=== PATIENT | female | born 1960 | race Caucasian/White ===

== ENCOUNTER → 2019-03-28 | Outpatient (CLI) | payer BC ==
[2019-03-28 16:54] LABS: HCT 40.9 % (34.0-46.0); HGB 13.4 gm/dL (11.4-16.0); MCH 28.5 pg (25.0-35.0); MCHC 32.8 g/dL (31.0-37.0); MCV 86.8 fL (80.0-100.0); Mean Platelet Volume 7.9; Platelet Count 215 k/uL (150-450); RBC 4.71 m/uL (3.80-5.40); RDW 15.4 % (11.5-15.5); WBC 8.5 k/uL (3.8-10.6)
[2019-03-28 23:13] LABS: Vitamin D 25 Hydroxy 20.6 ng/mL (30.0-100.0)
[2019-03-28 23:27] LABS: Estradiol <11.8 pg/mL; Progesterone <0.2 ng/mL
[2019-03-28 23:45] LABS: African American GFR (CKD) 94.2 (60.0-200.0); Albumin 4.9 g/dL (3.80-4.90); Albumin/Globulin Ratio 2.45 (1.60-3.17); Anion Gap 11.8 mmol/L (4.00-12.00); BUN/Creat Ratio 23.75 Ratio (12.00-20.00); Calcium 9.7 mg/dL (8.7-10.3); Carbon Dioxide 21.2 mmol/L (21.6-31.8); Potassium 4.5 mmol/L (3.5-5.5); Total Bilirubin 0.7 mg/dL (0.3-1.2); Total Protein 6.9 g/dL (6.2-8.2)
== END | disposition home or self-care (01) ==
LOC: LABWHC1 15:43
PROVIDERS: ATTEND Obstetrics & Gynecology
DX: N95.1 Menopausal and female climacteric states (principal); L65.9 Nonscarring hair loss, unspecified; N89.8 Other specified noninflammatory disorders of vagina; G47.00 Insomnia, unspecified; R37 Sexual dysfunction, unspecified; R45.4 Irritability and anger; R53.83 Other fatigue
CPT/HCPCS: 36415; 80053; 82306; 82607; 82670; 83001; 84144; 84403; 84443; 84481; 85027

== ENCOUNTER 2019-11-30 22:45 | Emergency (ER) | payer BC ==
[2019-11-30] MEDS ORDERED: SODIUM CHLORIDE 0.9% 1,000 ML IV STA (23:08)
[2019-11-30] MEDS ORDERED: ACETAMINOPHEN TAB 500 MG TAB PO STA (23:08)
[2019-11-30 23:42] LABS: Basophils % (A) 0 %; Eosinophils # (A) 0.1 k/uL (0-0.7); Eosinophils % (A) 0 %; HCT 41.2 % (34.0-46.0); HGB 13.6 gm/dL (11.4-16.0); Lymphocytes % (A) 8 %; MCH 27.6 pg (25.0-35.0); MCV 83.6 fL (80.0-100.0); Mean Platelet Volume 8.3; Monocytes # (A) 0.5 k/uL (0-1.0); Monocytes % (A) 4 %; Neutrophils % (A) 87 %; Platelet Count 175 k/uL (150-450); RBC 4.93 m/uL (3.80-5.40); WBC 12.7 k/uL (3.8-10.6)
[2019-11-30 23:49] LABS: Appearance,Urine Cloudy (Clear); Bilirubin,Urine Negative (Negative); Blood,Urine Small (Negative); Color,Urine Yellow; Glucose,Urine (UA) Negative (Negative); Ketones,Urine 3+ (Negative); Leukocyte Esterase,Urine Large (Negative); Mucus,Urine Few /hpf; Nitrite,Urine Negative (Negative); PH, Urine 5.5 (5.0-8.0); Protein,Urine Trace (Negative); RBC,Urine 4 /hpf (0-5); Specific Gravity,Urine 1.019 (1.001-1.035); Squamous Epithelial Cell,Urine 2 /hpf (0-4); Urobilinogen,Urine <2.0 mg/dL (<2.0); WBC,Urine >182 /hpf (0-5)
[2019-11-30] MEDS ORDERED: cefTRIAXone IN SWFI 1,000 MG/10 ML SYRINGE IVP STA (23:50)
[2019-11-30] MEDS ORDERED: KETOROLAC 30 MG/ML 1 ML VIAL IVP STA (23:50)
[2019-11-30 23:51] LABS: Albumin 4.5 g/dL (3.5-5.0); Calcium 9.4 mg/dL (8.4-10.2); Potassium 3.9 mmol/L (3.5-5.1); Total Protein 7.4 g/dL (6.3-8.2)
[2019-11-30] MEDS ORDERED: SODIUM CHLORIDE 0.9% 500 ML 500 ML IV ONE (23:51)
--- NOTE | 2019-12-01 00:02 | XR ---
EXAMINATION TYPE: XR chest 2V DATE OF EXAM: 11/30/2019 COMPARISON: 03/22/2013 HISTORY: Chest pain TECHNIQUE: 2 views FINDINGS: Heart and mediastinum are normal. Lungs are clear. Diaphragm is normal. Bony thorax appears normal. IMPRESSION: Normal chest. No change.
--- NOTE | 2019-12-01 00:09 | ED ---
General Adult HPI - General Chief complaint: Fever Stated complaint: Fever, nausea Time Seen by Provider: 11/30/19 23:08 Source: patient, RN notes reviewed, old records reviewed Mode of arrival: ambulatory Limitations: no limitations - History of Present Illness Initial comments: 59-year-old female with no significant past medical history presenting for fever, suprapubic pain and vomiting. Patient had several episodes of vomiting throughout the day today. She first noticed a fever yesterday evening. She denies cough or URI symptoms. She is additionally complaining of a headache and does have history of migraine headaches. She states her lower abdominal suprapubic pain is bilateral. She's had normal bowel movements. No rash. - Related Data Home Medications Medication Instructions Recorded Confirmed Ergocalciferol [Vitamin D2 1 tab PO DAILY 11/30/19 11/30/19 (DRISDOL)] Previous Rx's Medication Instructions Recorded Cephalexin [Keflex] 500 mg PO Q8HR 10 Days #30 cap 12/01/19 Allergies Allergy/AdvReac Type Severity Reaction Status Date / Time Sulfa (Sulfonamide Allergy Rash/Hives Verified 11/30/19 22:52 Antibiotics) Review of Systems ROS Statement: Those systems with pertinent positive or pertinent negative responses have been documented in the HPI. ROS Other: All systems not noted in ROS Statement are negative. Past Medical History Additional Past Medical History / Comment(s): migraines History of Any Multi-Drug Resistant Organisms: None Reported Past Surgical History: Appendectomy, Breast Surgery, Orthopedic Surgery Additional Past Surgical History / Comment(s): sinus surgery Past Psychological History: No Psychological Hx Reported Smoking Status: Never smoker Past Alcohol Use History: None Reported Past Drug Use History: None Reported General Exam Limitations: no limitations General appearance: alert, in no apparent distress Head exam: Present: atraumatic, normocephalic Eye exam: Present: normal appearance, PERRL, EOMI ENT exam: Present: normal exam, normal oropharynx Neck exam: Present: normal inspection. Absent: tenderness, meningismus Respiratory exam: Present: normal lung sounds bilaterally. Absent: respiratory distress, wheezes, rhonchi Cardiovascular Exam: Present: normal rhythm, tachycardia GI/Abdominal exam: Present: soft. Absent: distended, tenderness, guarding, rebound Extremities exam: Present: normal inspection, normal capillary refill. Absent: pedal edema Back exam: Present: normal inspection. Absent: CVA tenderness (R), CVA tenderness (L) Neurological exam: Present: alert, oriented X3, CN II-XII intact, normal gait. Absent: motor sensory deficit Psychiatric exam: Present: normal affect, normal mood Course Vital Signs 11/30/19 12/01/19 22:49 00:36 Temperature 101.7 F H 100.6 F H Pulse Rate 111 H 92 Respiratory 20 18 Rate Blood Pressure 147/93 134/77 O2 Sat by Pulse 97 96 Oximetry Medical Decision Making - Medical Decision Making 59-year-old female presenting with fever, vomiting, suprapubic pain. Patient afebrile mildly tachycardic with a stable blood pressure. Overall well- appearing. She has a history concerning for pyelonephritis. Urinalysis showing greater than 182 white cells, and 3+ ketones. She has mild leukocytosis, stable hemoglobin, normal electrolytes, normal kidney function, lactic acid is n ormal at 1.1. She's given IV hydration, IV antibiotics awaiting culture results. She is also given antipyretics and on reevaluation she is feeling much better. We did discuss possibility of admission versus home with close return parameters. Patient will return with any worsening or changing symptoms. She is prescribed Keflex 500 mg 3 times daily for 10 days. Urine culture pending. - Lab Data Result diagrams: 11/30/19 23:29 11/30/19 23:29 Lab Results 11/30/19 11/30/19 11/30/19 Range/Units 23:29 23:29 23:29 WBC 12.7 H (3.8-10.6) k/uL RBC 4.93 (3.80-5.40) m/uL Hgb 13.6 (11.4-16.0) gm/dL Hct 41.2 (34.0-46.0) % MCV 83.6 (80.0-100.0) fL MCH 27.6 (25.0-35.0) pg MCHC 33.0 (31.0-37.0) g/dL RDW 15.0 (11.5-15.5) % Plt Count 175 (150-450) k/uL Neutrophils % 87 % Lymphocytes % 8 % Monocytes % 4 % Eosinophils % 0 % Basophils % 0 % Neutrophils # 11.0 H (1.3-7.7) k/uL Lymphocytes # 1.0 (1.0-4.8) k/uL Monocytes # 0.5 (0-1.0) k/uL Eosinophils # 0.1 (0-0.7) k/uL Basophils # 0.0 (0-0.2) k/uL Sodium 136 L (137-145) mmol/L Potassium 3.9 (3.5-5.1) mmol/L Chloride 102 (98-107) mmol/L Carbon Dioxide 25 (22-30) mmol/L Anion Gap 9 mmol/L BUN 13 (7-17) mg/dL Creatinine 0.89 (0.52-1.04) mg/dL Est GFR (CKD-EPI)AfAm 82 (>60 ml/min/1.73 sqM) Est GFR (CKD-EPI)NonAf 71 (>60 ml/min/1.73 sqM) Glucose 116 H (74-99) mg/dL Plasma Lactic Acid Roberto (0.7-2.0) mmol/L Calcium 9.4 (8.4-10.2) mg/dL Total Bilirubin 1.0 (0.2-1.3) mg/dL AST 21 (14-36) U/L ALT 20 (4-34) U/L Alkaline Phosphatase 78 (38-126) U/L Total Protein 7.4 (6.3-8.2) g/dL Albumin 4.5 (3.5-5.0) g/dL Urine Color Yellow Urine Appearance Cloudy H (Clear) Urine pH 5.5 (5.0-8.0) Ur Specific [place] 1.019 (1.001-1.035) Urine Protein Trace H (Negative) Urine Glucose (UA) Negative (Negative) Urine Ketones 3+ H (Negative) Urine Blood Small H (Negative) Urine Nitrite Negative (Negative) Urine Bilirubin Negative (Negative) Urine Urobilinogen <2.0 (<2.0) mg/dL Ur Leukocyte Esterase Large H (Negative) Urine RBC 4 (0-5) /hpf Urine WBC >182 H (0-5) /hpf Ur Squamous Epith Cells 2 (0-4) /hpf Urine Mucus Few H (None) /hpf 11/30/19 Range/Units 23:29 WBC (3.8-10.6) k/uL RBC (3.80-5.40) m/uL Hgb (11.4-16.0) gm/dL Hct (34.0-46.0) % MCV (80.0-100.0) fL MCH (25.0-35.0) pg MCHC (31.0-37.0) g/dL RDW (11.5-15.5) % Plt Count (150-450) k/uL Neutrophils % % Lymphocytes % % Monocytes % % Eosinophils % % Basophils % % Neutrophils # (1.3-7.7) k/uL Lymphocytes # (1.0-4.8) k/uL Monocytes # (0-1.0) k/uL Eosinophils # (0-0.7) k/uL Basophils # (0-0.2) k/uL Sodium (137-145) mmol/L Potassium (3.5-5.1) mmol/L Chloride (98-107) mmol/L Carbon Dioxide (22-30) mmol/L Anion Gap mmol/L BUN (7-17) mg/dL Creatinine (0.52-1.04) mg/dL Est GFR (CKD-EPI)AfAm (>60 ml/min/1.73 sqM) Est GFR (CKD-EPI)NonAf (>60 ml/min/1.73 sqM) Glucose (74-99) mg/dL Plasma Lactic Acid Roberto 1.1 (0.7-2.0) mmol/L Calcium (8.4-10.2) mg/dL Total Bilirubin (0.2-1.3) mg/dL AST (14-36) U/L ALT (4-34) U/L Alkaline Phosphatase (38-126) U/L Total Protein (6.3-8.2) g/dL Albumin (3.5-5.0) g/dL Urine Color Urine Appearance (Clear) Urine pH (5.0-8.0) Ur Specific [place] (1.001-1.035) Urine Protein (Negative) Urine Glucose (UA) (Negative) Urine Ketones (Negative) Urine Blood (Negative) Urine Nitrite (Negative) Urine Bilirubin (Negative) Urine Urobilinogen (<2.0) mg/dL Ur Leukocyte Esterase (Negative) Urine RBC (0-5) /hpf Urine WBC (0-5) /hpf Ur Squamous Epith Cells (0-4) /hpf Urine Mucus (None) /hpf Disposition Clinical Impression: Pyelonephritis Disposition: HOME SELF-CARE Condition: Good Instructions (If sedation given, give patient instructions): Urinary Tract Infection in Women (ED), Fever in Adults (ED) Prescriptions: Cephalexin [Keflex] 500 mg PO Q8HR 10 Days #30 cap Is patient prescribed a controlled substance at d/c from ED?: No Referrals: Katie Arrington DO [Primary Care Provider] - 1-2 days Time of Disposition: 00:49
[2019-12-01 00:42] VITALS: RESP 18; TEMP 100.6
[2019-12-01 01:01] VITALS: BP 125/69; PULSE 86
== END 2019-12-01 01:04 | disposition home or self-care (01) ==
LOC: EC 22:45
DX: N12 Tubulo-interstitial nephritis, not specified as acute or chronic (principal); Z20.828 Contact with and (suspected) exposure to other viral communicable diseases; Z88.2 Allergy status to sulfonamides
CPT/HCPCS: 36415; 80053; 83605; 85025; 81001; 87040; 87086; 87635; 71046; 99284; 96374; 96375; 96361 ×2; J0696; J1885

== ENCOUNTER 2019-12-01 15:05 | Emergency (ER) | payer BC ==
[2019-12-01] MEDS ORDERED: SODIUM CHLORIDE 0.9% 1,000 ML IV STA (15:15)
[2019-12-01 15:20] VITALS: RESP 16; TEMP 98.7
[2019-12-01] MEDS ORDERED: diphenhydrAMINE 50 MG/ML 1 ML VIAL IVP STA (15:31)
[2019-12-01] MEDS ORDERED: KETOROLAC 30 MG/ML 1 ML VIAL IVP STA (15:31)
[2019-12-01] MEDS ORDERED: ONDANSETRON 4 MG/2 ML VIAL IVP STA (15:31)
--- NOTE | 2019-12-01 15:41 | ED ---
General Adult HPI - General Chief complaint: Headache Stated complaint: Headache Time Seen by Provider: 12/01/19 15:12 Source: patient, EMS Mode of arrival: ambulatory Limitations: no limitations - History of Present Illness Initial comments: Dictation was produced using [employer] dictation software. please excuse any grammatical, word or spelling errors. This patient was cared for during a federal and state declared state of emergency secondary to Covid 19 Chief Complaint: 59-year-old feel past medical history of migraines presents w ith right parietal headache. History of Present Illness: Patient's 59-year-old female presents today with a right parietal headache. Patient has a history of migraines. She states that her headache 8 is slightly atypical from her usual. She states that the onset of her headache started yesterday around 7 PM. Patient was seen here yesterday where she was diagnosed with UTI concerning for pyelonephritis. Disposition options were discussed with patient and she opted to leave with oral antibiotics and strict return precautions. Patient states that around the time of the onset of her symptoms she began developing fevers as well. She denies any neck pain. No nausea or vomiting. She describes the pain as mild and shooting located to the parietal area. Denies any radiation of symptoms. Denies any neurologic deficit. No vision loss. Denies any jaw claudication. Denies any pain ante rior to the right ear. She does complain of photophobia with worsening of symptoms with exposure to light. The ROS documented in this emergency department record has been reviewed and confirmed by me. Those systems with pertinent positive or negative responses have been documented in the HPI. All other systems are other negative and/or noncontributory. PHYSICAL EXAM: General Impression: Alert and oriented x3, mild distress secondary to pain HEENT: Normocephalic atraumatic, extra-ocular movements intact, pupils equal and reactive to light bilaterally, mucous membranes moist. Cardiovascular: Heart regular rate and rhythm Chest: Able to complete full sentences, no retractions, no tachypnea Abdomen: abdomen soft, non-tender, non-distended, no organomegaly Musculoskeletal: Pulses present and equal in all extremities, no peripheral edema Motor: no focal deficits noted Neurological: CN II-XII grossly intact, no focal motor or sensory deficits noted, negative Brudzinski, negative Kernig's, negative Lhermitte's Skin: Intact with no visualized rashes Psych: Normal affect and mood ED course: 59-year-old female presents with headache. She denies that this headache is the worse headache of her life. She does report that her headache symptoms today are slightly different from her usual. She was seen yesterday for urinary tract infection concerning for pyelonephritis. The onset of her symptoms began with fever. Vital signs upon arrival are within acceptable limits. Patient's headache is likely secondary to fever. Very low suspicion for neurologic infection at this time. Laboratory evaluation obtained. CBC, metabolic panel and urinalysis was obtained. No leukocytosis. There is positive neutrophils 8.6. Metabolic panel shows bicarb of 17 without anion gap. Urinalysis shows 2+ ketones with 96 white blood cells. Patient given headache cocktail. She is reevaluated with significant improvement of symptoms. Patient's symptoms likely secondary to systemic response from urinary tract infection and dehydration. To stay well- hydrated. Patient offered inpatient admission hours she preferred to be discharged. Patient given by mouth analgesia to take when necessary headache. Return parameters discussed. She quit for discharge. Patient is well-appearing upon reevaluation. She is ambulatory without complications. She is not in any acute distress. Her vital signs are stable. - Related Data Home Medications Medication Instructions Recorded Confirmed Ergocalciferol [Vitamin D2 1 tab PO DAILY 11/30/19 11/30/19 (DRISDOL)] Previous Rx's Medication Instructions Recorded Cephalexin [Keflex] 500 mg PO Q8HR 10 Days #30 cap 12/01/19 Morphine Sulfate Ir [MSIR] 15 mg PO Q6HR PRN 3 Days #6 tab 12/01/19 Allergies Allergy/AdvReac Type Severity Reaction Status Date / Time Sulfa (Sulfonamide Allergy Rash/Hives Verified 11/30/19 22:52 Antibiotics) Review of Systems ROS Statement: Those systems with pertinent positive or pertinent negative responses have been documented in the HPI. ROS Other: All systems not noted in ROS Statement are negative. Past Medical History Past Medical History: No Reported History Additional Past Medical History / Comment(s): migraines History of Any Multi-Drug Resistant Organisms: None Reported Past Surgical History: Appendectomy, Breast Surgery, Orthopedic Surgery Additional Past Surgical History / Comment(s): sinus surgery Past Psychological History: No Psychological Hx Reported Smoking Status: Never smoker Past Alcohol Use History: None Reported Past Drug Use History: None Reported General Exam Limitations: no limitations Course Vital Signs 12/01/19 12/01/19 15:16 17:09 Temperature 98.7 F Pulse Rate 91 87 Respiratory 16 16 Rate Blood Pressure 142/83 128/75 O2 Sat by Pulse 97 98 Oximetry Medical Decision Making - Lab Data Result diagrams: 12/01/19 15:43 12/01/19 15:43 Lab Results 12/01/19 12/01/19 12/01/19 Range/Units 15:43 15:43 15:43 WBC 9.9 (3.8-10.6) k/uL RBC 4.57 (3.80-5.40) m/uL Hgb 12.4 (11.4-16.0) gm/dL Hct 38.3 (34.0-46.0) % MCV 83.8 (80.0-100.0) fL MCH 27.1 (25.0-35.0) pg MCHC 32.3 (31.0-37.0) g/dL RDW 14.9 (11.5-15.5) % Plt Count 153 (150-450) k/uL Neutrophils % 87 % Lymphocytes % 8 % Monocytes % 4 % Eosinophils % 1 % Basophils % 0 % Neutrophils # 8.6 H (1.3-7.7) k/uL Lymphocytes # 0.8 L (1.0-4.8) k/uL Monocytes # 0.4 (0-1.0) k/uL Eosinophils # 0.1 (0-0.7) k/uL Basophils # 0.0 (0-0.2) k/uL Sodium 134 L (137-145) mmol/L Potassium 4.9 (3.5-5.1) mmol/L Chloride 107 (98-107) mmol/L Carbon Dioxide 17 L (22-30) mmol/L Anion Gap 10 mmol/L BUN 14 (7-17) mg/dL Creatinine 0.66 (0.52-1.04) mg/dL Est GFR (CKD-EPI)AfAm >90 (>60 ml/min/1.73 sqM) Est GFR (CKD-EPI)NonAf >90 (>60 ml/min/1.73 sqM) Glucose 94 (74-99) mg/dL Plasma Lactic Acid Roberto 1.1 (0.7-2.0) mmol/L Calcium 8.8 (8.4-10.2) mg/dL Magnesium 2.2 (1.6-2.3) mg/dL Urine Color Urine Appearance (Clear) Urine pH (5.0-8.0) Ur Specific [place] (1.001-1.035) Urine Protein (Negative) Urine Glucose (UA) (Negative) Urine Ketones (Negative) Urine Blood (Negative) Urine Nitrite (Negative) Urine Bilirubin (Negative) Urine Urobilinogen (<2.0) mg/dL Ur Leukocyte Esterase (Negative) Urine RBC (0-5) /hpf Urine WBC (0-5) /hpf Ur Squamous Epith Cells (0-4) /hpf Urine Bacteria (None) /hpf Urine Mucus (None) /hpf 12/01/19 Range/Units 17:19 WBC (3.8-10.6) k/uL RBC (3.80-5.40) m/uL Hgb (11.4-16.0) gm/dL Hct (34.0-46.0) % MCV (80.0-100.0) fL MCH (25.0-35.0) pg MCHC (31.0-37.0) g/dL RDW (11.5-15.5) % Plt Count (150-450) k/uL Neutrophils % % Lymphocytes % % Monocytes % % Eosinophils % % Basophils % % Neutrophils # (1.3-7.7) k/uL Lymphocytes # (1.0-4.8) k/uL Monocytes # (0-1.0) k/uL Eosinophils # (0-0.7) k/uL Basophils # (0-0.2) k/uL Sodium (137-145) mmol/L Potassium (3.5-5.1) mmol/L Chloride (98-107) mmol/L Carbon Dioxide (22-30) mmol/L Anion Gap mmol/L BUN (7-17) mg/dL Creatinine (0.52-1.04) mg/dL Est GFR (CKD-EPI)AfAm (>60 ml/min/1.73 sqM) Est GFR (CKD-EPI)NonAf (>60 ml/min/1.73 sqM) Glucose (74-99) mg/dL Plasma Lactic Acid Roberto (0.7-2.0) mmol/L Calcium (8.4-10.2) mg/dL Magnesium (1.6-2.3) mg/dL Urine Color Light Yellow Urine Appearance Cloudy H (Clear) Urine pH 6.0 (5.0-8.0) Ur Specific [place] 1.007 (1.001-1.035) Urine Protein Negative (Negative) Urine Glucose (UA) Negative (Negative) Urine Ketones 2+ H (Negative) Urine Blood Trace H (Negative) Urine Nitrite Negative (Negative) Urine Bilirubin Negative (Negative) Urine Urobilinogen <2.0 (<2.0) mg/dL Ur Leukocyte Esterase Large H (Negative) Urine RBC 3 (0-5) /hpf Urine WBC 96 H (0-5) /hpf Ur Squamous Epith Cells 1 (0-4) /hpf Urine Bacteria Rare H (None) /hpf Urine Mucus Rare H (None) /hpf Disposition Clinical Impression: Acute headache Disposition: HOME SELF-CARE Condition: Fair Instructions (If sedation given, give patient instructions): Acute Headache (ED) Prescriptions: Morphine Sulfate Ir [MSIR] 15 mg PO Q6HR PRN 3 Days #6 tab PRN Reason: Pain Is patient prescribed a controlled substance at d/c from ED?: Yes If prescribed controlled substance>3 days was MAPS reviewed?: Prescribed <3 Days Referrals: Katie Arrington DO [Primary Care Provider] - 1-2 days Time of Disposition: 18:47
[2019-12-01] MEDS ORDERED: MORPHINE SULFATE 4 MG/ML SYRINGE IV STA (15:58)
[2019-12-01 15:59] LABS: Basophils % (A) 0 %; Eosinophils # (A) 0.1 k/uL (0-0.7); Eosinophils % (A) 1 %; HCT 38.3 % (34.0-46.0); HGB 12.4 gm/dL (11.4-16.0); Lymphocytes # (A) 0.8 k/uL (1.0-4.8); Lymphocytes % (A) 8 %; MCH 27.1 pg (25.0-35.0); MCHC 32.3 g/dL (31.0-37.0); MCV 83.8 fL (80.0-100.0); Mean Platelet Volume 8.5; Monocytes # (A) 0.4 k/uL (0-1.0); Monocytes % (A) 4 %; Neutrophils # (A) 8.6 k/uL (1.3-7.7); Neutrophils % (A) 87 %; Platelet Count 153 k/uL (150-450); RBC 4.57 m/uL (3.80-5.40); RDW 14.9 % (11.5-15.5); WBC 9.9 k/uL (3.8-10.6)
[2019-12-01 16:10] LABS: African American GFR (CKD) >90 (>60 ml/min/1.73 sqM); Anion Gap 10 mmol/L; Blood Urea Nitrogen 14 mg/dL (7-17); Calcium 8.8 mg/dL (8.4-10.2); Carbon Dioxide 17 mmol/L (22-30); Chloride 107 mmol/L (98-107); Glucose 94 mg/dL (74-99); Magnesium 2.2 mg/dL (1.6-2.3); Non-African American GFR(CKD) >90 (>60 ml/min/1.73 sqM); Sodium 134 mmol/L (137-145)
[2019-12-01 16:11] LABS: Potassium 4.9 mmol/L (3.5-5.1)
[2019-12-01 17:10] VITALS: PULSE 87
[2019-12-01 17:44] LABS: Appearance,Urine Cloudy (Clear); Bacteria,Urine Rare /hpf; Bilirubin,Urine Negative (Negative); Blood,Urine Trace (Negative); Color,Urine Light Yellow; Glucose,Urine (UA) Negative (Negative); Ketones,Urine 2+ (Negative); Leukocyte Esterase,Urine Large (Negative); Mucus,Urine Rare /hpf; Nitrite,Urine Negative (Negative); Protein,Urine Negative (Negative); RBC,Urine 3 /hpf (0-5); Specific Gravity,Urine 1.007 (1.001-1.035); Squamous Epithelial Cell,Urine 1 /hpf (0-4); Urobilinogen,Urine <2.0 mg/dL (<2.0); WBC,Urine 96 /hpf (0-5)
[2019-12-01 21:02] VITALS: BP 135/78
== END 2019-12-01 20:10 | disposition home or self-care (01) ==
LOC: EC 15:05
DX: R51 Headache (principal); Z88.2 Allergy status to sulfonamides
CPT/HCPCS: 36415; 80048; 83605; 83735; 85025; 81001; 87040; 99284; 96374; 96375 ×3; 96361; J2270; J1200; J2405; J1885

== ENCOUNTER 2019-12-07 10:50 | Day surgery (SDC) | payer BC ==
[2019-12-05 12:44] VITALS: BMI 23.3
[~2019-12-07 10:50] MED LIST: LACTATED RINGERS 1,000 ML IV SCH
[2019-12-07 11:49] VITALS: TEMP 97.6
[2019-12-07] MEDS ORDERED: LIDOCAINE 1% (10MG/ML) FOR IV START INTRADERMA ONE (11:57)
[2019-12-07] MEDS ORDERED: PROPOFOL 10 MG/ML 20 ML VIAL IV ONE (12:12)
[2019-12-07] MEDS ORDERED: LIDOCAINE 1% INJ 10MG/ML (20 ML MDV) ONE (12:12)
--- NOTE | 2019-12-07 12:45 | P.PCN ---
Date of Procedure: 12/07/19 Procedure(s) Performed: BRIEF HISTORY: Patient is a -59 year-old pleasant white female scheduled for an elective colonoscopy as a part of of screening for colorectal neoplasia. PROCEDURE PERFORMED: Colonoscopy with biopsy PREOPERATIVE DIAGNOSIS: Screening for colon cancer IV sedation per Anesthesia. PROCEDURE: After informed consent was obtained, the patient, was brought into the endoscopy unit. IV sedation was administered by Anesthesia under continuous monitoring. Digital rectal examination was normal. Distal rectal examination revealed a distal rectal mass noted just proximal to the dentate line. Initially the Olympus CF-160 flexible video colonoscope was then inserted in the rectum, gradually advanced into the cecum without any difficulty. Careful examination was performed as the scope was gradually being withdrawn. Ileocecal valve and the appendiceal orifice were visualized and appeared normal. Prep was excellent. Mucosa of the cecum, ascending colon, transverse colon, descending colon, sigmoid colon appeared normal. in the mid rectum there was a 3-4 cm polypoid mass identified and multiple biopsies were done from this area. This was located in centimeters from the anal verge. in the distal rectum just proximal to the dentate line the mucosa appeared very friable and bleeding and hence multiple biopsies were done from the distal rectum also to evaluate the extent of neoplasm. The patient tolerated the procedure well. IMPRESSION: 3-4 cm mid rectal polypoid mass at 10 cm from the anal verge status post multiple biopsies Mucosal friability with oozing noted in the distal rectum just proximal to the dentate line status post biopsies RECOMMENDATIONS: Findings of this examination were discussed with the patient as well as her family. She was advised to follow with the biopsy results. She'll be seen in office in 5 days. We will obtain CT of abdomen and pelvis early next week..
[2019-12-07 13:07] VITALS: BP 153/92; PULSE 65; RESP 18
== END 2019-12-07 13:38 | disposition home or self-care (01) ==
LOC: ORWHC2ENDO 10:50
PROVIDERS: ATTEND Internal Medicine Gastroenterology
DX: Z12.11 Encounter for screening for malignant neoplasm of colon (principal); C20 Malignant neoplasm of rectum; G43.909 Migraine, unspecified, not intractable, without status migrainosus; N39.0 Urinary tract infection, site not specified; Z88.2 Allergy status to sulfonamides; Z91.09 Other allergy status, other than to drugs and biological substances; Z90.49 Acquired absence of other specified parts of digestive tract
CPT/HCPCS: 88305; 45380; J2001; J2704

== ENCOUNTER → 2019-12-11 | Outpatient (CLI) | payer BC ==
--- NOTE | 2019-12-11 12:24 | CT ---
EXAMINATION TYPE: CT abdomen pelvis wo/w con DATE OF EXAM: 12/11/2019 COMPARISON: None INDICATION: known colon mass DLP: 899.2 mGycm, Automated exposure control for dose reduction was used. CONTRAST: 100 mL of Isovue 300. Study performed with Oral Contrast TECHNIQUE: Axial images were obtained from above the diaphragm to the pubic rami in the axial plane a t 5 mm thick sections. Reconstructed images are reviewed on the computer in the coronal plane. FINDINGS: Limited CT sections are obtained the lung bases. The lung bases are clear. CT ABDOMEN: Liver: A 0.9 cm hypodense structures in the lateral mid right lobe liver likely is a hepatic cyst. Spleen: Normal Pancreas: Normal Adrenal glands: The adrenal glands are normal. Gallbladder: Normal Kidneys: No masses are evident. No hydronephrosis is present. No cysts are present. Delayed images were obtained through the kidneys, which remain unremarkable. Aorta: Normal Inferior vena cava: Normal. CT PELVIS: Fecal debris is through the colon. There is some irregular wall thickening of the distal sigmoid colo n and rectosigmoid junction region. Correlate with the patient's history of a known colon mass. Remai nder of the loops of bowel appear unremarkable. No obstruction is evident. Oral contrast extends to t he mid transverse colon. Appendix: Not identified. No suspicious dilated tubular structure or inflammatory changes evident. Urinary bladder: Normal. Genitourinary structures: Uterus appears normal. Adnexal regions are clear Osseous structures: No suspicious lytic or sclerotic lesions. IMPRESSIONS: 1. Rectosigmoid mass. There may be some thickening along the presacral space inferiorly. 2. Suspicious metastatic changes are not identified.
== END | disposition home or self-care (01) ==
LOC: RADCTMAIN 08:02
PROVIDERS: ATTEND Internal Medicine Gastroenterology
DX: K59.8 Other specified functional intestinal disorders (principal)
CPT/HCPCS: 74178; Q9967

== ENCOUNTER → 2019-12-19 | Outpatient (CLI) | payer BC ==
--- NOTE | 2019-12-20 20:29 | MR ---
EXAMINATION TYPE: MR pelvis wo/w con DATE OF EXAM: 12/19/2019 COMPARISON: Correlation CT 12/11/2019 HISTORY: 59-year-old female, C20, Rectal cancer Technique: Multiplanar, multisequence images of the pelvis were obtained before and after administrat ion of 7 mL intravenous Gadavist gadolinium contrast. Diffusion-weighted imaging is performed. Plane s were signed relative to the patient's rectal cancer. FINDINGS: There is a solid tumor with a length of 10 cm extending throughout the mid and lower rectum. The lower border is located at the anorectal angle with suspected focal invasion along the posterolat eral aspects of the upper most internal sphincter (coronal series 701 image 11). The upper border is 10 cm from the anorectal angle. There is extensive low T2 signal involvement of the mesorectal fat throughout. For example, at 3:00 within the lower rectum, axial series 501 image 18, there is loss of fat plane w ith the mesorectal fascia. Also, anteriorly, within the lower rectum, there is broad-based extension across the mesorectal fat t o abut and involve the posterior wall of the vagina for a width of 4.5 cm (axial series 501 image 23) and craniocaudal dimension of 1.9 cm (sagittal series 401 image 14). Within the middle rectum, there is solid tumor extending from the 2-4 o'clock position to extend into the mesorectal fascia (coronal series 601 image 13). More superiorly, also within the middle rectum, there is a second area of solid tumor extension from the 8 to 10:00 position to within 1 mm of the mesorectal fascia, (axial series 501 image 35 and coron al series 601 image 15). A couple suspicious 9 mm lymph nodes are present in the high left posterior mesorectum and are either irregular rounded in appearance (coronal series 601 image 13 and 14). A 1.2 cm suspicious irregular lymph node is present along the right posterolateral junction of the mi d and lower rectum (axial series 501 image 25). There is also a 1.2 cm irregular extramesorectal lymph node along the right pelvic sidewall (axial se kevin 501 image 30). IMPRESSION: 1. T4b-N2 tumor (including right-sided extramesorectal lymph node involvement). 2. Tumor involves a 10 cm long segment of the mid and low rectum. There is broad-based (4.5 cm wide) involvement of the posterior vaginal wall for a craniocaudal span of 1.9 cm. 3. Some focal involvement of the posterolateral aspects of the internal sphincter is suspected inferi sosa. 4. Multifocal tumor extension into the mesorectal fat. Solid tumor in the middle rectum extends off t o each side to involve the mesorectal fascia as above. 5. At least 3 suspicious mesorectal lymph nodes, 2 of which are located on the left at the high recta l level. 6. In addition, there is a highly suspicious 1.2 cm extramesorectal lymph node along the right pelvic sidewall.
== END | disposition home or self-care (01) ==
LOC: RADMRIMAIN 18:25
PROVIDERS: ATTEND Internal Medicine Hematology & Oncology
DX: R59.0 Localized enlarged lymph nodes (principal); C20 Malignant neoplasm of rectum
CPT/HCPCS: 72197; A9585

== ENCOUNTER → 2019-12-20 | Outpatient (CLI) | payer BC ==
--- NOTE | 2019-12-20 08:35 | CT ---
EXAMINATION TYPE: CT chest w con DATE OF EXAM: 12/20/2019 COMPARISON: Correlation CT abdomen and pelvis 12/11/2019 HISTORY: 59-year-old female Rectal cancer TECHNIQUE: Contiguous axial scanning of the chest after the administration of 100 ml mL of Isovue 300 . Coronal/sagittal reconstructions performed. CT DLP: 471mGycm. Automatic exposure control utilized for a dose reduction. FINDINGS: Heart normal size without pericardial effusion. Borderline ectasia aortic root at 3.6 cm. Bovine configuration to the aortic arch. Scattered nonenlarged mediastinal lymph nodes. No thoracic lymphadenopathy by CT size criteria. Minimal biapical pleural parenchymal scarring. Minimal strandy atelectasis in the lower lungs. Nonspecific 4 mm peripheral right lower lobe pulmonary nodule, axial image 35. No consolidation or pleural effusion. Tiny hiatal hernia. There may be underlying fatty infiltration of the liver. Stable 9 mm probable cys t peripheral right liver lobe. Bones: Mild degenerative disc disease mid to lower thoracic spine. No osseous destructive process. IMPRESSION: 1. Nonspecific 4 mm right lower lobe pulmonary nodule. Three-month follow-up can be performed. 2. Tiny hiatal hernia.
== END | disposition home or self-care (01) ==
LOC: RADCTMAIN 06:37
PROVIDERS: ATTEND Internal Medicine Hematology & Oncology
DX: Z03.89 Encounter for observation for other suspected diseases and conditions ruled out (principal); C20 Malignant neoplasm of rectum; R91.1 Solitary pulmonary nodule; K44.9 Diaphragmatic hernia without obstruction or gangrene; Z88.2 Allergy status to sulfonamides
CPT/HCPCS: 71260; Q9967

== ENCOUNTER → 2019-12-26 | Day surgery (SDC) | payer BC ==
[~2019-12-26] MED LIST changes: -LACTATED RINGERS 1,000 ML IV SCH; +LIDOCAINE 1% INJ 10MG/ML (20 ML MDV) SQ ONE
[2019-12-26 10:33] VITALS: BP 16/79; PULSE 78; RESP 16; TEMP 99.1
--- NOTE | 2019-12-26 14:41 | IR ---
EXAMINATION TYPE: IR cvc insert >=5 years DATE OF EXAM: 12/26/2019 COMPARISON: NONE CLINICAL HISTORY: Rectal carcinoma Needs long-term intravenous access for hemotherapy. PROCEDURE: Hand hygiene obtained with soap and water and alcohol-based hand rub. After informed consent, the skin overlying the right basilic vein was localized with ultrasound and n oted to be compressible and patent. An ultrasound image was obtained and submitted on the patient's chart. The overlying skin was prepped and draped and Lidocaine was used for local anesthesia. A ski n shelly was made with a scalpel. Access was gained to the vein under ultrasound guidance with a 21 ga uge needle and a 0.018 inch wire was advanced. Access site was dilated with Peel-Away sheath and cat heter tailored to the appropriate length and advanced such that the distal tip is at the cavoatrial j unction. Spot image was obtained verifying placement. Catheter was fixed to the skin and a sterile dressing was placed following hemostasis. Catheter was aspirated and flushed with saline. Patient w as discharged in stable condition without complication. Maximal barrier technique is utilized. Ultra sound image is documented on the chart. Ultrasound used with sterile technique. Fluoro time and fluoroscopic images submitted to document procedure: 14 intraoperative images, 0.3 mi nutes fluoroscopy time IMPRESSION: STATUS POST ULTRASOUND AND FLUOROSCOPIC GUIDED PICC LINE PLACEMENT, READY FOR USE. THIS PROCEDURE WAS PERFORMED BY THE UNDERSIGNED.
== END ==
LOC: CATHCVL 10:10
PROVIDERS: ATTEND Radiology Diagnostic Radiology
DX: C20 Malignant neoplasm of rectum (principal); G43.909 Migraine, unspecified, not intractable, without status migrainosus; Z98.890 Other specified postprocedural states; Z83.2 Family history of diseases of the blood and blood-forming organs and certain disorders involving the immune mechanism; Z80.3 Family history of malignant neoplasm of breast; Z80.41 Family history of malignant neoplasm of ovary; Z80.0 Family history of malignant neoplasm of digestive organs; Z86.19 Personal history of other infectious and parasitic diseases; Z88.2 Allergy status to sulfonamides
CPT/HCPCS: 36573; C1751; C1769; J2001

== ENCOUNTER 2020-02-08 12:24 | Emergency (ER) | payer BC ==
[2020-02-08 12:35] VITALS: BP 104/70; PULSE 103; RESP 20; TEMP 98.9
[2020-02-08] MEDS ORDERED: ONDANSETRON 4 MG/2 ML VIAL IVP STA (12:56)
[2020-02-08] MEDS ORDERED: MORPHINE SULFATE 4 MG/ML SYRINGE IV STA (12:56)
[2020-02-08] MEDS ORDERED: PANTOPRAZOLE 40 MG/10 ML VIAL IVP STA (12:56)
[2020-02-08] MEDS ORDERED: SODIUM CHLORIDE 0.9% 1,000 ML IV STA ×2 (12:56)
--- NOTE | 2020-02-08 12:58 | ED ---
General Adult HPI - General Chief complaint: Nausea/Vomiting/Diarrhea Stated complaint: VOMITING Time Seen by Provider: 02/08/20 12:44 Source: patient, RN notes reviewed Mode of arrival: ambulatory Limitations: no limitations - History of Present Illness Initial comments: Patient is a pleasant 59-year-old female presenting to the emergency department with nausea vomiting. Symptoms have started to get worse over the past couple weeks, much worse today. Patient is unable to hold any oral intake down today despite several attempts at anti-medics. Patient does have some abdominal cramping. Patient has chronic diarrhea. 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 - Related Data Home Medications Medication Instructions Recorded Confirmed traMADol HCL [Ultram] 50 mg PO Q6H PRN 12/26/19 02/08/20 Capecitabine [Xeloda] 1,000 mg PO TID 02/08/20 02/08/20 Cholecalciferol (Vitamin D3) 125 mcg PO DAILY 02/08/20 02/08/20 [Vitamin D3] LORazepam [Ativan] 1 mg PO TID 02/08/20 02/08/20 Loperamide HCl [Imodium A-D] 2 - 4 mg PO TID PRN MDD 4 TABLETS 02/08/20 02/08/20 Ondansetron HCl [Zofran] 8 mg PO Q8H 02/08/20 02/08/20 Allergies Allergy/AdvReac Type Severity Reaction Status Date / Time Sulfa (Sulfonamide Allergy Severe Rash/Hives Verified 02/08/20 13:45 Antibiotics) alcohol Allergy Rash/Hives Verified 02/08/20 13:45 Review of Systems ROS Statement: Those systems with pertinent positive or pertinent negative responses have been documented in the HPI. ROS Other: All systems not noted in ROS Statement are negative. Constitutional: Denies: fever Eyes: Denies: eye pain ENT: Denies: ear pain Respiratory: Denies: cough Cardiovascular: Denies: chest pain Endocrine: Denies: fatigue Gastrointestinal: Reports: as per HPI, nausea, vomiting, diarrhea. Denies: constipation Genitourinary: Denies: dysuria Musculoskeletal: Denies: back pain Skin: Denies: rash Neurological: Denies: weakness Past Medical History Past Medical History: Cancer Additional Past Medical History / Comment(s): migraines History of Any Multi-Drug Resistant Organisms: None Reported Past Surgical History: Appendectomy, Breast Surgery, Orthopedic Surgery Additional Past Surgical History / Comment(s): sinus surgery Past Psychological History: No Psychological Hx Reported Smoking Status: Never smoker Past Alcohol Use History: None Reported Past Drug Use History: None Reported General Exam Limitations: no limitations General appearance: alert, in no apparent distress Head exam: Present: normocephalic Eye exam: Present: normal appearance Neck exam: Present: normal inspection Respiratory exam: Present: normal lung sounds bilaterally Cardiovascular Exam: Present: regular rate, normal rhythm Expanded Peripheral pulses: 2+: Dorsalis Pedis (R), Dorsalis Pedis (L) GI/Abdominal exam: Present: soft, tenderness (Mild epigastric tenderness to palpation), normal bowel sounds. Absent: distended, guarding, rebound, rigid, p ulsatile mass Extremities exam: Present: normal inspection Neurological exam: Present: alert Psychiatric exam: Present: normal affect, normal mood Skin exam: Present: normal color Course Vital Signs 02/08/20 12:32 Temperature 98.9 F Pulse Rate 103 H Respiratory 20 Rate Blood Pressure 104/70 O2 Sat by Pulse 100 Oximetry Medical Decision Making - Medical Decision Making patient reevaluated twice and resting comfortably in bed. Patient feels much better, nausea has resolved. Patient offered admission however refuses and requests discharge home. Patient advised to return if symptoms worsen. Patient also advised to follow-up with oncology regarding her treatment and when to resume. Patient states she does have a break through the weekend. - Lab Data Result diagrams: 02/08/20 13:22 02/08/20 13:22 Lab Results 02/08/20 02/08/20 Range/Units 13:22 13:22 WBC 1.7 L (3.8-10.6) k/uL RBC 3.85 (3.80-5.40) m/uL Hgb 11.5 (11.4-16.0) gm/dL Hct 33.1 L (34.0-46.0) % MCV 86.0 (80.0-100.0) fL MCH 29.8 (25.0-35.0) pg MCHC 34.7 (31.0-37.0) g/dL RDW 18.4 H (11.5-15.5) % Anisocytosis Slight Sodium 133 L (137-145) mmol/L Potassium 4.2 (3.5-5.1) mmol/L Chloride 104 (98-107) mmol/L Carbon Dioxide 25 (22-30) mmol/L Anion Gap 4 mmol/L BUN 12 (7-17) mg/dL Creatinine 0.66 (0.52-1.04) mg/dL Est GFR (CKD-EPI)AfAm >90 (>60 ml/min/1.73 sqM) Est GFR (CKD-EPI)NonAf >90 (>60 ml/min/1.73 sqM) Glucose 104 H (74-99) mg/dL Calcium 8.8 (8.4-10.2) mg/dL Total Bilirubin 2.0 H (0.2-1.3) mg/dL AST 25 (14-36) U/L ALT 32 (4-34) U/L Alkaline Phosphatase 76 (38-126) U/L Total Protein 5.8 L (6.3-8.2) g/dL Albumin 3.6 (3.5-5.0) g/dL Amylase <30 L (30-110) U/L Lipase 50 (23-300) U/L Disposition Clinical Impression: Vomiting Disposition: HOME SELF-CARE Condition: Stable Instructions (If sedation given, give patient instructions): Acute Nausea and Vomiting (ED) Additional Instructions: Please follow-up with your oncologist in the next day or 2 for recheck. Please have discussion regarding when to restart chemotherapy. Return for uncontrolled vomiting, fevers, abdominal pain, worsening symptoms or other concerns. Is patient prescribed a controlled substance at d/c from ED?: No Referrals: Katie Arrington DO [Primary Care Provider] - 1-2 days Tam Aguayo MD [STAFF PHYSICIAN] - 1-2 days Time of Disposition: 14:30
[2020-02-08 14:02] LABS: Anisocytosis Slight; Basophils % (A) 1 %; Eosinophils # (A) 0.1 k/uL (0-0.7); Eosinophils % (A) 3 %; HCT 33.1 % (34.0-46.0); HGB 11.5 gm/dL (11.4-16.0); Lymphocytes # (A) 0.1 k/uL (1.0-4.8); Lymphocytes % (A) 7 %; MCH 29.8 pg (25.0-35.0); MCHC 34.7 g/dL (31.0-37.0); Mean Platelet Volume 7.9; Monocytes # (A) 0.2 k/uL (0-1.0); Monocytes % (A) 13 %; Neutrophils # (A) 1.3 k/uL (1.3-7.7); Neutrophils % (A) 74 %; RBC 3.85 m/uL (3.80-5.40); RDW 18.4 % (11.5-15.5); WBC 1.7 k/uL (3.8-10.6)
--- NOTE | 2020-02-08 14:02 | XR ---
EXAMINATION TYPE: XR KUB DATE OF EXAM: 02/08/2020 COMPARISON: NONE HISTORY: Pain TECHNIQUE: Single supine KUB image of the abdomen is obtained FINDINGS: Small bowel demonstrates no evidence for dilatation or air fluid levels. Gas and fecal material is seen in non-distended colon. No convincing evidence for pneumoperitoneum. No unusual calcifications. The lung bases are clear. The osseous structures are intact. IMPRESSION: 1. Overall nonobstructive bowel gas pattern.
[2020-02-08 14:05] LABS: ALT 32 U/L (4-34); AST 25 U/L (14-36); African American GFR (CKD) >90 (>60 ml/min/1.73 sqM); Albumin 3.6 g/dL (3.5-5.0); Alkaline Phosphatase 76 U/L (38-126); Amylase <30 U/L (30-110); Anion Gap 4 mmol/L; Blood Urea Nitrogen 12 mg/dL (7-17); Calcium 8.8 mg/dL (8.4-10.2); Carbon Dioxide 25 mmol/L (22-30); Chloride 104 mmol/L (98-107); Glucose 104 mg/dL (74-99); Non-African American GFR(CKD) >90 (>60 ml/min/1.73 sqM); Potassium 4.2 mmol/L (3.5-5.1); Sodium 133 mmol/L (137-145); Total Protein 5.8 g/dL (6.3-8.2)
[2020-02-08 14:27] LABS: Appearance,Urine Cloudy (Clear); Bacteria,Urine Rare /hpf; Bilirubin,Urine Negative (Negative); Blood,Urine Negative (Negative); Color,Urine Yellow; Glucose,Urine (UA) Negative (Negative); Ketones,Urine 1+ (Negative); Leukocyte Esterase,Urine Moderate (Negative); Mucus,Urine Many /hpf; Nitrite,Urine Negative (Negative); Protein,Urine 1+ (Negative); RBC,Urine 3 /hpf (0-5); Specific Gravity,Urine 1.024 (1.001-1.035); Squamous Epithelial Cell,Urine <1 /hpf (0-4); WBC,Urine 50 /hpf (0-5)
[2020-02-08 14:36] LABS: Platelet Count 85 k/uL (150-450)
[2020-02-08 14:41] LABS: Prothrombin Time 10.3 sec (9.0-12.0)
[2020-02-08 14:43] LABS: Partial Thromboplastin Time 19.7 sec (22.0-30.0)
== END 2020-02-08 16:40 | disposition home or self-care (01) ==
LOC: EC 12:24
DX: R11.10 Vomiting, unspecified (principal); R10.9 Unspecified abdominal pain; R19.7 Diarrhea, unspecified; R10.816 Epigastric abdominal tenderness; C21.0 Malignant neoplasm of anus, unspecified; Z79.899 Other long term (current) drug therapy; Z88.2 Allergy status to sulfonamides; Z91.048 Other nonmedicinal substance allergy status
CPT/HCPCS: 36415; 80053; 82150; 83690; 85025; 85610; 85730; 81001; 87086; 74018; 99284; 96374; 96375 ×2; 96361; J2270; J2405; C9113

== ENCOUNTER 2020-02-10 17:59 | Inpatient (IN) | payer BC ==
[2020-02-10] MEDS ORDERED: ONDANSETRON 4 MG/2 ML VIAL IVP STA (18:34)
[2020-02-10] MEDS ORDERED: MORPHINE SULFATE 4 MG/ML SYRINGE IV STA (18:34)
[2020-02-10] MEDS ORDERED: SODIUM CHLORIDE 0.9% 1,000 ML IV STA ×2 (18:34→19:23)
--- NOTE | 2020-02-10 18:37 | ED ---
General Adult HPI - General Chief complaint: Nausea/Vomiting/Diarrhea Stated complaint: CA can't keep anything down Time Seen by Provider: 02/10/20 18:15 Source: patient Mode of arrival: wheelchair Limitations: no limitations - History of Present Illness Initial comments: Dictation was produced using [employer] dictation software. please excuse any gra mmatical, word or spelling errors. This patient was cared for during a federal and state declared state of emergency secondary to Covid 19 Chief Complaint: 59-year-old female with past medical history of squamous anal cancer presents with nausea vomiting and abdominal pain. History of Present Illness: 59-year-old female she is currently under a course of infusion, radiation and oral chemotherapy. She presents today with nausea, vomiting and abdominal pain. Patient was seen here 2 days ago where she was evaluated by the emergency physician. He is recommended to her to be admitted to the hospital. She refused and instead requested to be discharged. Patient was told to return to the emergency department if she experiences any worsening symptoms. Patient states that since last being seen in the emergency department her symptoms have not improved and got slightly worse. She complains of lower pelvic pain, anal and vaginal pain. Patient reports that this pain has been t here for the last several weeks. She states she gets focus of radiation and her pelvic area. Patient denies any fever, chills or night sweats. The ROS documented in this emergency department record has been reviewed and confirmed by me. Those systems with pertinent positive or negative responses have been documented in the HPI. All other systems are other negative and/or noncontributory. PHYSICAL EXAM: General Impression: Alert and oriented x3, acute distress secondary to nausea and abdominal pain HEENT: Normocephalic atraumatic, extra-ocular movements intact, pupils equal and reactive to light bilaterally, mucous membranes moist. Cardiovascular: Heart regular rate and rhythm Chest: Able to complete full sentences, no retractions, no tachypnea Abdomen: abdomen soft, diffuse tenderness worse in the bilateral lower quadrants, non-distended, no organomegaly Musculoskeletal: Pulses present and equal in all extremities, no peripheral edema Motor: no focal deficits noted Neurological: CN II-XII grossly intact, no focal motor or sensory deficits noted Skin: Intact with no visualized rashes Perineal exam: Hyperpigmentation and ulceration to the anal and perineal area. There is fibrinous exudates Abdi's ulcerations Psych: Normal affect and mood ED course: 59-year-old female with past medical history of anal cancer undergoing active cancer treatment presents today with nausea vomiting and abdominal pain. Vital signs upon arrival are within acceptable limits. Laboratory evaluation obtained. Leukopenia 1.5 which appears to be patient's baseline. Hemoglobin 11.1. Rest of CBC is patient's baseline. Appears that it's pancytopenic. Metabolic panel shows sodium 129. Acidosis of 18 without any anion gap. Rest of labs grossly unremarkable. Abdominal x-ray shows no ac erica abdomen. Patient reevaluated at bedside. There is concern for dehydration. Consider patient's comorbidities and clinical presentation recommended the patient be admitted for IV hydration and medical monitoring. Patient was agreeable. Case is discussed Dr. Uriarte who is willing to accept patient care. EKG interpretation: Ventricular rate 80, normal sinus rhythm,. Interval 140, QRS 86, QTC 422. No SD prolongation, no QTC prolongation, no ST or T-wave changes noted. Overall, this EKG is unremarkable - Related Data Home Medications Medication Instructions Recorded Confirmed traMADol HCL [Ultram] 50 mg PO Q6H PRN 12/26/19 02/08/20 Capecitabine [Xeloda] 1,000 mg PO TID 02/08/20 02/08/20 Cholecalciferol (Vitamin D3) 125 mcg PO DAILY 02/08/20 02/08/20 [Vitamin D3] LORazepam [Ativan] 1 mg PO TID 02/08/20 02/08/20 Loperamide HCl [Imodium A-D] 2 - 4 mg PO TID PRN MDD 4 TABLETS 02/08/20 02/08/20 Ondansetron HCl [Zofran] 8 mg PO Q8H 02/08/20 02/08/20 Allergies Allergy/AdvReac Type Severity Reaction Status Date / Time Sulfa (Sulfonamide Allergy Severe Rash/Hives Verified 02/10/20 19:47 Antibiotics) alcohol Allergy Rash/Hives Verified 02/10/20 19:47 Review of Systems ROS Statement: Those systems with pertinent positive or pertinent negative responses have been documented in the HPI. ROS Other: All systems not noted in ROS Statement are negative. Past Medical History Past Medical History: Cancer Additional Past Medical History / Comment(s): migraines History of Any Multi-Drug Resistant Organisms: None Reported Past Surgical History: Appendectomy, Breast Surgery, Orthopedic Surgery Additional Past Surgical History / Comment(s): sinus surgery Past Psychological History: No Psychological Hx Reported Smoking Status: Never smoker Past Alcohol Use History: None Reported Past Drug Use History: None Reported General Exam Limitations: no limitations Course Vital Signs 02/10/20 02/10/20 18:03 19:45 Temperature 99.0 F Pulse Rate 87 74 Respiratory 20 18 Rate Blood Pressure 108/72 113/63 O2 Sat by Pulse 99 98 Oximetry Medical Decision Making - Lab Data Result diagrams: 02/10/20 18:34 02/10/20 18:34 Lab Results 02/10/20 02/10/20 02/10/20 Range/Units 18:34 18:34 18:34 WBC 1.5 L (3.8-10.6) k/uL RBC 3.75 L (3.80-5.40) m/uL Hgb 11.1 L (11.4-16.0) gm/dL Hct 32.0 L (34.0-46.0) % MCV 85.4 (80.0-100.0) fL MCH 29.7 (25.0-35.0) pg MCHC 34.8 (31.0-37.0) g/dL RDW 18.7 H (11.5-15.5) % Plt Count 66 L (150-450) k/uL Neutrophils % 62 % Lymphocytes % 10 % Monocytes % 23 % Eosinophils % 2 % Basophils % 0 % Neutrophils # 1.0 L (1.3-7.7) k/uL Lymphocytes # 0.2 L (1.0-4.8) k/uL Monocytes # 0.4 (0-1.0) k/uL Eosinophils # 0.0 (0-0.7) k/uL Basophils # 0.0 (0-0.2) k/uL Manual Slide Review Performed Anisocytosis Slight Anisocytosis (manual) Present Sodium 129 L (137-145) mmol/L Potassium 4.1 (3.5-5.1) mmol/L Chloride 101 (98-107) mmol/L Carbon Dioxide 18 L (22-30) mmol/L Anion Gap 10 mmol/L BUN 11 (7-17) mg/dL Creatinine 0.56 (0.52-1.04) mg/dL Est GFR (CKD-EPI)AfAm >90 (>60 ml/min/1.73 sqM) Est GFR (CKD-EPI)NonAf >90 (>60 ml/min/1.73 sqM) Glucose 99 (74-99) mg/dL Plasma Lactic Acid Roberto 1.2 (0.7-2.0) mmol/L Calcium 8.5 (8.4-10.2) mg/dL Magnesium 2.0 (1.6-2.3) mg/dL Total Bilirubin 1.9 H (0.2-1.3) mg/dL AST 20 (14-36) U/L ALT 21 (4-34) U/L Alkaline Phosphatase 70 (38-126) U/L Total Protein 5.8 L (6.3-8.2) g/dL Albumin 3.5 (3.5-5.0) g/dL Lipase 46 (23-300) U/L Disposition Clinical Impression: Dehydration Disposition: ADMITTED IP TO THIS [facility] Condition: Fair Referrals: Katie Arrington DO [Primary Care Provider] - 1-2 days Decision Time: 19:52
[2020-02-10 19:05] LABS: ALT 21 U/L (4-34); AST 20 U/L (14-36); African American GFR (CKD) >90 (>60 ml/min/1.73 sqM); Albumin 3.5 g/dL (3.5-5.0); Alkaline Phosphatase 70 U/L (38-126); Anion Gap 10 mmol/L; Blood Urea Nitrogen 11 mg/dL (7-17); Calcium 8.5 mg/dL (8.4-10.2); Carbon Dioxide 18 mmol/L (22-30); Chloride 101 mmol/L (98-107); Glucose 99 mg/dL (74-99); Non-African American GFR(CKD) >90 (>60 ml/min/1.73 sqM); Potassium 4.1 mmol/L (3.5-5.1); Sodium 129 mmol/L (137-145); Total Bilirubin 1.9 mg/dL (0.2-1.3); Total Protein 5.8 g/dL (6.3-8.2)
[2020-02-10 19:18] LABS: Anisocytosis Slight; Basophils % (A) 0 %; Eosinophils % (A) 2 %; HGB 11.1 gm/dL (11.4-16.0); Lymphocytes # (A) 0.2 k/uL (1.0-4.8); Lymphocytes % (A) 10 %; MCH 29.7 pg (25.0-35.0); MCHC 34.8 g/dL (31.0-37.0); MCV 85.4 fL (80.0-100.0); Mean Platelet Volume 8.2; Monocytes # (A) 0.4 k/uL (0-1.0); Monocytes % (A) 23 %; Neutrophils % (A) 62 %; RBC 3.75 m/uL (3.80-5.40); RDW 18.7 % (11.5-15.5); WBC 1.5 k/uL (3.8-10.6)
[2020-02-10 19:20] LABS: Platelet Count 66 k/uL (150-450)
[2020-02-10 19:27] LABS: Anisocytosis (M) Present
--- NOTE | 2020-02-10 19:27 | XR ---
EXAMINATION TYPE: XR abdomen 1V DATE OF EXAM: 02/10/2020 COMPARISON: 02/08/2020 HISTORY: Pain TECHNIQUE: 2 views FINDINGS: 2 views upright were obtained and show no sign of intestinal obstruction or pneumoperitoneu m. Fecal pattern is normal. There are no pathologic calcifications over the kidneys. Bony structures are intact. IMPRESSION: Nonacute abdomen. No change compared to old exam.
[2020-02-10] MEDS ORDERED: NALOXONE 0.4 MG/ML 1 ML VIAL IV PRN (21:38)
[2020-02-10] MEDS: MORPHINE SULFATE 4 MG/ML SYRINGE IV PRN (23:09)
[2020-02-11] MEDS: SODIUM CHLORIDE 0.9% 1,000 ML IV SCH ×2 (01:52→08:39)
[2020-02-11] MEDS: ONDANSETRON 4 MG/2 ML VIAL IVP PRN ×4 (02:57→23:17)
[2020-02-11] MEDS: MORPHINE SULFATE 4 MG/ML SYRINGE IV PRN ×4 (04:39→23:17)
[2020-02-11] MEDS ORDERED: traMADol 50 MG TAB PO PRN (09:01)
[2020-02-11] MEDS ORDERED: LORazepam 1 MG TAB PO PRN (09:01)
[2020-02-11] MEDS ORDERED: FILGRASTIM-SNDZ 480 MCG/0.8 ML SYRINGE SQ STA (10:45)
[2020-02-11 10:54] VITALS: BMI 21.4
--- NOTE | 2020-02-11 10:59 | P.CONS ---
History of Present Illness - Reason for Consult Consult date: 02/11/20 on treatment for anal cancer, side effects of treatment Requesting physician: Shekhar Gallagher - Chief Complaint intractable nausea and vomiting - History of Present Illness Mrs. Arredondo is a very pleasant 59-year-old female who was diagnosed with anal carcinoma earlier this year. She noticed a change in stool caliber with associated pain with defecation 2019. 12/07/19 colonoscopy revealed a mass in the distal rectum right at dentate line, very friable with bleeding, biopsy positive for invasive squamous cell. 12/11/19 CT AP revealed rectosigmoid mass, no evidence of metastatic disease, 12/20/19 CT chest revealed nonspecific 4 mm right upper lobe nodule. MRI of the pelvis revealed 10 cm solid tumor extending through mid and lower rectum, involving the internal anal sphincter, posterior wall of the vagina, 2 small nodes in the left posterior mesorectum, some nodes noted on the right pelvic sidewall. Patient started mitomycin/Xeloda with radiation 01/02/20. Patient had her last mitomycin 02/04. Patient stopped radiation and Xeloda last , she had 3 more days to go. Patient was having persistent and progressive upset stomach, abdominal pain, nausea and vomiting, leading to decreased oral intake, progressive weakness and fatigue, just feels worn out, having severe perineal pain. Denies fevers, oral irritation, sore throat, chest pain, shortness of breath, productive cough, dysuria, hematuria, swelling in the legs, she is still ambulatory. Review of Systems 14 point review of systems is negative except as stated in HPI Past Medical History Past Medical History: Cancer Additional Past Medical History / Comment(s): migraines, colitis in her 20s History of Any Multi-Drug Resistant Organisms: None Reported Past Surgical History: Appendectomy, Breast Surgery, Orthopedic Surgery Additional Past Surgical History / Comment(s): sinus surgery Past Anesthesia/Blood Transfusion Reactions: No Reported Reaction Past Psychological History: No Psychological Hx Reported Smoking Status: Never smoker Past Alcohol Use History: None Reported Past Drug Use History: None Reported - Past Family History Sister(s) Family Medical History: Cancer Additional Family Medical History / Comment(s): Breast cancer, mets to brain, 1994; ; another sister has CA Medications and Allergies Home Medications Medication Instructions Recorded Confirmed Type traMADol HCL [Ultram] 50 mg PO Q6H PRN 06/17/20 08/02/20 History Capecitabine [Xeloda] 1,500 mg PO DIRECTED 02/08/20 02/10/20 History Cholecalciferol (Vitamin D3) 125 mcg PO DAILY 02/08/20 02/10/20 History [Vitamin D3] LORazepam [Ativan] 1 mg PO Q8H PRN 02/08/20 02/10/20 History Loperamide HCl [Imodium A-D] 2 - 4 mg PO TID PRN MDD 8 tabs 02/08/20 02/10/20 History Ondansetron HCl [Zofran] 4 mg PO Q8H PRN 02/08/20 02/10/20 History Famotidine [Pepcid AC] 10 mg PO ONCE PRN 02/10/20 02/10/20 History Allergies Allergy/AdvReac Type Severity Reaction Status Date / Time Sulfa (Sulfonamide Allergy Severe Rash/Hives Verified 02/10/20 19:47 Antibiotics) alcohol Allergy Rash/Hives Verified 02/10/20 19:47 Physical Exam Vitals: Vital Signs Temp Pulse Pulse Resp BP BP Pulse Ox 02/11/20 05:24 99.1 F 78 18 132/71 100 02/10/20 23:00 81 18 02/10/20 22:41 99.1 F 81 18 115/69 100 02/10/20 21:14 99.1 F 81 18 120/67 98 02/10/20 19:45 74 18 113/63 98 02/10/20 18:03 99.0 F 87 20 108/72 99 Intake and Output 02/10/20 02/11/20 02/11/20 22:59 06:59 14:59 Other: Voiding Method Toilet # Voids 1 # Bowel Movements 0 Weight 65.771 kg - Constitutional General appearance: average body habitus, cooperative, mild distress - EENT Eyes: anicteric sclerae, EOMI ENT: hearing grossly normal, normal oropharynx - Neck Neck: no lymphadenopathy - Respiratory Respiratory: bilateral: CTA - Cardiovascular Rhythm: regular Heart sounds: normal: S1, S2 Abnormal Heart Sounds: no systolic murmur, no diastolic murmur, no rub, no S3 Gallop, no S4 Gallop, no click, no other leg Peripheral Edema: bilateral: None - Gastrointestinal General gastrointestinal: no absent bowel sounds, no decreased bowel sounds, no distended, no hepatomegaly, no hyperactive bowel sounds, normal bowel sounds, no organomegaly, no rigid, no scaphoid, soft, no splenomegaly, tenderness, no umbilical hernia, no ventral hernia - Neurologic Neurologic: CNII-XII intact - Musculoskeletal Musculoskeletal: generalized weakness - Psychiatric Psychiatric: A&O x's 3, appropriate affect, intact judgment & insight Results CBC & Chem 7: 02/10/20 18:34 02/10/20 18:34 Labs: Abnormal Lab Results - Last 24 Hours (Table) 02/10/20 02/10/20 Range/Units 18:34 18:34 WBC 1.5 L (3.8-10.6) k/uL RBC 3.75 L (3.80-5.40) m/uL Hgb 11.1 L (11.4-16.0) gm/dL Hct 32.0 L (34.0-46.0) % RDW 18.7 H (11.5-15.5) % Plt Count 66 L (150-450) k/uL Neutrophils # 1.0 L (1.3-7.7) k/uL Lymphocytes # 0.2 L (1.0-4.8) k/uL Sodium 129 L (137-145) mmol/L Carbon Dioxide 18 L (22-30) mmol/L Total Bilirubin 1.9 H (0.2-1.3) mg/dL Total Protein 5.8 L (6.3-8.2) g/dL Chest x-ray: report reviewed Abdominal x-ray: report reviewed Assessment and Plan (1) Cancer of anal canal Narrative/Plan: Patient was just 3 days shy of completing the entire five-day cycle of neoadjuvant treatment. Will review the case with primary Oncologist and Radiation Oncologist. Not sure if there is a significant benefit to be derived from completing 3 more days of treatment but, that will be decided with the patient and her Doctors. Current Visit: Yes Status: Acute Priority: High Code(s): C21.1 - MALIGNANT NEOPLASM OF ANAL CANAL SNOMED Code(s): 508325387 (2) Dehydration Narrative/Plan: Secondary to intractable nausea and vomiting, patient is being hydrated. Patient has been made nothing by mouth, D5.9 20 meq KCl ordered Current Visit: Yes Status: Acute Priority: High Code(s): E86.0 - DEHYDRATION SNOMED Code(s): 77303424 (3) Vomiting Narrative/Plan: Anti-emetic regimen has been adjusted. PPI added Current Visit: Yes Status: Acute Priority: High Code(s): R11.10 - VOMITING, UNSPECIFIED SNOMED Code(s): 040081123 (4) Pancytopenia due to antineoplastic chemotherapy Narrative/Plan: mild anemia, hemoglobin 11.1, no intervention. Platelets 66,000. No need for intervention, okay for DVT prophylaxis. The BB C1.5 with an ANC of 1000. With patient's presentation and abdominal complaints G-CSF 1 dose ordered. CBC daily. Current Visit: Yes Status: Acute Priority: High Code(s): D61.810 - ANTINEOPLASTIC CHEMOTHERAPY INDUCED PANCYTOPENIA; T45.1X5A - ADVERSE EFFECT OF ANTINEOPLASTIC AND IMMUNOSUP DRUGS, INIT SNOMED Code(s): 781251623656373 (5) Neutropenic typhlitis Narrative/Plan: Pain on examination to the abdomen. Patient is now nothing by mouth. One dose of G-CSF. Discussed the case with RN and MA, they will evaluate perineal skin and contact Rad Onc RN for recs for treatment of the XRT burn Current Visit: Yes Status: Acute Priority: High Code(s): K36 - OTHER APPENDICITIS SNOMED Code(s): 3443328 Plan: Doctor attests: I performed a history and physical examination of this patient, developed impression and plan of care. Discussed with dictator. I agree with dictators note, documented as a scribe.
[2020-02-11] MEDS: D5-0.9% NACL WITH KCL 20 MEQ/L 1,000 ML IV SCH ×2 (11:32→19:09)
--- NOTE | 2020-02-11 22:45 | P.HPIM ---
History of Present Illness H&P Date: 02/11/20 Chief Complaint: nausea/vomiting Rosetta Arredondo is a 59-year-old female with hx anal carcinoma who presented to the ED complaining of nausea, vomiting and weakness. She is currently undergoing neoadjuvant chemoradiation and had to stop this last to do these progressive symptoms. Specifically she complains of nausea, vomiting and abdominal pain leading to decrease PO intake and fatigue. She also complains of severe perineal pain. On presentation vitals stable, WBC 1.5 with lymphocyte 0.2, Hgb 11.1, bili 1.9. EKG and Abd XR unremarkable. Review of Systems All systems: negative Constitutional: Reports fatigue, Reports malaise, Denies chills, Denies fever Eyes: denies blurred vision, denies pain Ears, nose, mouth and throat: Denies headache, Denies sore throat Cardiovascular: Denies chest pain, Denies shortness of breath Respiratory: Denies cough Gastrointestinal: Reports abdominal pain, Reports loss of appetite, Reports nausea, Reports vomiting, Denies diarrhea Genitourinary: Denies dysuria, Denies hematuria Musculoskeletal: Denies myalgias Integumentary: Denies pruritus, Denies rash Neurological: Denies numbness, Denies weakness Psychiatric: Denies anxiety, Denies depression Endocrine: Denies fatigue, Denies weight change Past Medical History Past Medical History: Cancer Additional Past Medical History / Comment(s): migraines, colitis in her 20s History of Any Multi-Drug Resistant Organisms: None Reported Past Surgical History: Appendectomy, Breast Surgery, Orthopedic Surgery Additional Past Surgical History / Comment(s): sinus surgery Past Anesthesia/Blood Transfusion Reactions: No Reported Reaction Past Psychological History: No Psychological Hx Reported Smoking Status: Never smoker Past Alcohol Use History: None Reported Past Drug Use History: None Reported - Past Family History Sister(s) Family Medical History: Cancer Additional Family Medical History / Comment(s): Breast cancer, mets to brain, 1994; ; another sister has CA Medications and Allergies Home Medications Medication Instructions Recorded Confirmed Type traMADol HCL [Ultram] 50 mg PO Q6H PRN 12/26/19 02/10/20 History Capecitabine [Xeloda] 1,500 mg PO DIRECTED 02/08/20 02/10/20 History Cholecalciferol (Vitamin D3) 125 mcg PO DAILY 02/08/20 02/10/20 History [Vitamin D3] LORazepam [Ativan] 1 mg PO Q8H PRN 02/08/20 02/10/20 History Loperamide HCl [Imodium A-D] 2 - 4 mg PO TID PRN MDD 8 tabs 02/08/20 02/10/20 History Ondansetron HCl [Zofran] 4 mg PO Q8H PRN 02/08/20 02/10/20 History Famotidine [Pepcid AC] 10 mg PO ONCE PRN 02/10/20 02/10/20 History Allergies Allergy/AdvReac Type Severity Reaction Status Date / Time Sulfa (Sulfonamide Allergy Severe Rash/Hives Verified 02/10/20 19:47 Antibiotics) alcohol Allergy Rash/Hives Verified 02/10/20 19:47 Physical Exam Vitals: Vital Signs Temp Pulse Resp BP Pulse Ox 02/11/20 20:52 98.8 F 82 16 132/73 100 02/11/20 13:00 98.2 F 76 17 108/69 98 02/11/20 05:24 99.1 F 78 18 132/71 100 02/10/20 23:00 81 18 02/10/20 22:41 99.1 F 81 18 115/69 100 Intake and Output 02/11/20 02/11/20 02/11/20 06:59 14:59 22:59 Output Total 200 Balance -200 Output: Emesis 200 Other: Voiding Method Toilet Toilet # Voids 1 1 # Bowel Movements 0 Weight 65.771 kg General: well nourished, well developed, NAD. Vitals reviewed Eyes: PERRL, EOMI, conjunctiva normal HENT: normocephalic, mucus membranes moist Neck: supple, no JVD Lungs: normal respiratory effort, no wheezes or rales CV: Regular rate and rhythm, no murmur. Peripheral pulses 2+ Abdomen: soft, nondistended, no organomegaly Lymph: no cervical or axillary LAD Skin: warm and dry. Neuro: A&Ox3, normal mood and affect Results CBC & Chem 7: 02/10/20 18:34 02/10/20 18:34 Thrombosis Risk Factor Assmnt - Choose All That Apply Any of the Below Risk Factors Present?: Yes Each Factor Represents 1 point: Age 41-60 years Other Risk Factors: Yes Each Risk Factor Represents 3 Points: Family history of DVT/PE Thrombosis Risk Factor Assessment Total Risk Factor Score: 4 Thrombosis Risk Factor Assessment Level: Moderate Risk Assessment and Plan (1) Chemotherapy induced nausea and vomiting Current Visit: Yes Status: Acute Code(s): R11.2 - NAUSEA WITH VOMITING, UNSPECIFIED; T45.1X5A - ADVERSE EFFECT OF ANTINEOPLASTIC AND IMMUNOSUP DRUGS, INIT SNOMED Code(s): 51199003 (2) Cancer of anal canal Current Visit: Yes Status: Acute Priority: High Code(s): C21.1 - MALIGNANT NEOPLASM OF ANAL CANAL SNOMED Code(s): 655046923 (3) Pancytopenia due to antineoplastic chemotherapy Current Visit: Yes Status: Acute Priority: High Code(s): D61.810 - ANTINEOPLASTIC CHEMOTHERAPY INDUCED PANCYTOPENIA; T45.1X5A - ADVERSE EFFECT OF ANTINEOPLASTIC AND IMMUNOSUP DRUGS, INIT SNOMED Code(s): 742836800287952 (4) Vomiting Current Visit: Yes Status: Acute Priority: High Code(s): R11.10 - VOMITING, UNSPECIFIED SNOMED Code(s): 122711995 Plan: 1. Chemotherapy induced nausea and vomiting. Hematology consulted. IVF hydration, zofran prn. 2. Anal cancer. Perineal pain. Morphine and tramadol ordered prn 3. Chemotherapy induced pancytopenia
[2020-02-12] MEDS: D5-0.9% NACL WITH KCL 20 MEQ/L 1,000 ML IV SCH ×3 (02:40→18:14)
[2020-02-12 09:47] LABS: Anisocytosis Slight; HCT 27.9 % (34.0-46.0); MCH 29.9 pg (25.0-35.0); MCHC 34.2 g/dL (31.0-37.0); MCV 87.3 fL (80.0-100.0); Mean Platelet Volume 8.7; RBC 3.19 m/uL (3.80-5.40); RDW 19.7 % (11.5-15.5); WBC 3.6 k/uL (3.8-10.6)
[2020-02-12 09:54] LABS: HGB 9.5 gm/dL (11.4-16.0); Platelet Count 58 k/uL (150-450)
[2020-02-12 10:52] LABS: Band Neutrophils % 8 %; Eosinophils # (M) 0.04 k/uL (0-0.7); Lymphocytes # (M) 0.18 k/uL (1.0-4.8); Monocytes # (M) 0.47 k/uL (0-1.0); Neutrophils % (M) 73 %; Nucleated Red Blood Cells 0 /100 WBC (0-0); Total Cells Counted 100
[2020-02-12 10:54] LABS: Poikilocytosis (M) Present
--- NOTE | 2020-02-12 14:43 | P.PN ---
Subjective Progress Note Date: 02/12/20 Rsoetta Arredondo is a 59-year-old female with hx anal carcinoma who presented to the ED complaining of nausea, vomiting and weakness. She is currently undergoing neoadjuvant chemoradiation and had to stop this last to do these progressive symptoms. Specifically she complains of nausea, vomiting and abdo kurt pain leading to decrease PO intake and fatigue. She also complains of severe perineal pain. On presentation vitals stable, WBC 1.5 with lymphocyte 0.2, Hgb 11.1, bili 1.9. EKG and Abd XR unremarkable. 02/12/20 maintained on hydrogel dressings, reporting less perineal pain. Continues on IV fluid hydration, nothing by mouth. Reports last nausea at 0200. Complains of diffuse abdominal tenderness. Oncology consult in place, recommendations pending. WBC improving up to 3.6, hemoglobin decreased to 9.5, platelets 58. Afebrile. Objective - Vital Signs Vital signs: Vital Signs Temp 98.3 F 02/12/20 05:00 Pulse 78 02/12/20 05:00 Resp 16 02/12/20 05:00 BP 104/66 02/12/20 05:00 Pulse Ox 97 02/12/20 05:00 Intake & Output 02/11/20 02/12/20 02/12/20 18:59 06:59 18:59 Intake Total 1320 Output Total 200 Balance 1120 Weight 65.771 kg Intake: Intake, IV Titration 1200 Amount D5-0.9% NaCl with KCl 20 1200 Meq/l 1,000 ml @ 125 mls/ hr IV .Q8H [facility] Rx#: [id number] Oral 120 Output: Emesis 200 Other: Voiding Method Toilet Toilet # Voids 1 2 1 - Exam General: well nourished, well developed, NAD. Vitals reviewed Eyes: PERRL, EOMI, conjunctiva normal HENT: normocephalic, mucus membranes moist Neck: supple, no JVD Lungs: normal respiratory effort, no wheezes or rales CV: Regular rate and rhythm, no murmur. Peripheral pulses 2+ Abdomen: soft, nondistended, no organomegaly Lymph: no cervical or axillary LAD Skin: warm and dry. Neuro: A&Ox3, normal mood and affect - Labs CBC & Chem 7: 02/12/20 08:21 02/10/20 18:34 Assessment and Plan Assessment: (1) Chemotherapy induced nausea and vomiting Current Visit: Yes Status: Acute Code(s): R11.2 - NAUSEA WITH VOMITING, UNSPECIFIED; T45.1X5A - ADVERSE EFFECT OF ANTINEOPLASTIC AND IMMUNOSUP DRUGS, INIT SNOMED Code(s): 04593341 (2) Cancer of anal canal Current Visit: Yes Status: Acute Priority: High Code(s): C21.1 - MALIGNANT NEOPLASM OF ANAL CANAL SNOMED Code(s): 451054422 (3) Pancytopenia due to antineoplastic chemotherapy Current Visit: Yes Status: Acute Priority: High Code(s): D61.810 - ANTINEOPLASTIC CHEMOTHERAPY INDUCED PANCYTOPENIA; T45.1X5A - ADVERSE EFFECT OF ANTINEOPLASTIC AND IMMUNOSUP DRUGS, INIT SNOMED Code(s): 056934790183966 (4) Vomiting Current Visit: Yes Status: Acute Priority: High Code(s): R11.10 - VOMITING, UNSPECIFIED SNOMED Code(s): 714782680 Plan: Continue on current medication regime ,monitoring and symptomatic treatment. Maintain IV fluid hydration, anti-emetics ,Pain management. npo, until advanced by oncology. Radiation oncology consult in place, recommendations pending regarding further radiation treatments. The impression and plan of care has been dictated as directed. : I performed a history and examination of this patient, discussed the same with the dictator. I agree with the dictator's note ,documented as a scribe. Any additional findings or plans will be noted.
[2020-02-12] MEDS ORDERED: PROCHLORPERAZINE 10 MG TAB PO PRN (18:11)
[2020-02-12] MEDS ORDERED: FILGRASTIM-SNDZ 480 MCG/0.8 ML SYRINGE SQ STA (18:16)
--- NOTE | 2020-02-12 18:16 | P.PN ---
Subjective Progress Note Date: 02/12/20 Principal diagnosis: nausea, vomiting secondary to chemotherapy, local treatment toxicities In follow-up today patient does state she is better than yesterday. She does have complaints of nausea/wanting to vomit about once every 8 hours, she states that today is the first morning that that has not happened. She is very protective of her abdomen, states it is very tender and palpation since "ripples" of pain that take a long time to subside,she states the topical is working to soothe the perineal area. No fevers, oral irritation, skin or nail toxicities, shortness of breath, cough, chest pain or other pain to report. Objective - Vital Signs Vital signs: Vital Signs Temp 98.6 F 02/12/20 12:09 Pulse 73 02/12/20 12:09 Resp 16 02/12/20 12:09 BP 106/67 02/12/20 12:09 Pulse Ox 99 02/12/20 12:09 Intake & Output 02/11/20 02/12/20 02/12/20 18:59 06:59 18:59 Intake Total 1320 Output Total 200 200 Balance 1120 -200 Weight 65.771 kg Intake: Intake, IV Titration 1200 Amount D5-0.9% NaCl with KCl 20 1200 Meq/l 1,000 ml @ 125 mls/ hr IV .Q8H [facility] Rx#: [id number] Oral 120 Output: Emesis 200 200 Other: Voiding Method Toilet Toilet # Voids 1 2 2 - Constitutional General appearance: Present: average body habitus, cooperative, no acute distress - EENT Eyes: Present: anicteric sclerae, EOMI ENT: Present: hearing grossly normal, normal oropharynx - Respiratory Respiratory: bilateral: CTA - Cardiovascular Rhythm: regular Heart sounds: normal: S1, S2 Abnormal Heart Sounds: Absent: systolic murmur, diastolic murmur, rub, S3 Ga llop, S4 Gallop, click, other - Peripheral edema leg Peripheral Edema: bilateral: None - Gastrointestinal Gastrointestinal Comment(s): soft but, patient would not let me touch her abdomen, stanch guarding - Neurologic Neurologic: Present: CNII-XII intact - Musculoskeletal Musculoskeletal: Present: strength equal bilaterally - Psychiatric Psychiatric: Present: A&O x's 3, appropriate affect, intact judgment & insight - Labs CBC & Chem 7: 02/12/20 08:21 02/10/20 18:34 Labs: Abnormal Lab Results - Last 24 Hours (Table) 02/12/20 Range/Units 08:21 WBC 3.6 L (3.8-10.6) k/uL RBC 3.19 L (3.80-5.40) m/uL Hgb 9.5 L D (11.4-16.0) gm/dL Hct 27.9 L (34.0-46.0) % RDW 19.7 H (11.5-15.5) % Plt Count 58 L (150-450) k/uL Lymphocytes # (Manual) 0.18 L (1.0-4.8) k/uL Assessment and Plan (1) Cancer of anal canal Narrative/Plan: Patient was just 5 days (yesterdays dictation was incorrect) shy of completing the entire 45-day cycle of neoadjuvant treatment. Dr. Adhikari has seen the patient. He and Dr. Aguayo will discuss case. No treatment planned at this time due to severe SE Current Visit: Yes Status: Acute Priority: High Code(s): C21.1 - MALIGNANT NEOPLASM OF ANAL CANAL SNOMED Code(s): 272199070 (2) Dehydration Narrative/Plan: Secondary to intractable nausea and vomiting, patient is being hydrated. Cont nothing by mouth due to severe abd pain, D5.9 20 meq KCl ordered Current Visit: Yes Status: Acute Priority: High Code(s): E86.0 - DEHYDRATION SNOMED Code(s): 19453901 (3) Vomiting Narrative/Plan: Timed-every 8 hours? added Protonix and Compazine Current Visit: Yes Status: Acute Priority: High Code(s): R11.10 - VOMITING, UNSPECIFIED SNOMED Code(s): 456037470 (4) Pancytopenia due to antineoplastic chemotherapy Narrative/Plan: Progressive anemia, hemoglobin 9.5, CT AP due to pain and drop in Hgb. Platelets 58,000. No need for intervention, hold DVT prophylaxis, no ASA, N SAIDs. G-CSF 1 dose given, WBC 3.6, ANC 2.9. 1 more dose today CBC daily. Current Visit: Yes Status: Acute Priority: High Code(s): D61.810 - ANTINEOPLASTIC CHEMOTHERAPY INDUCED PANCYTOPENIA; T45.1X5A - ADVERSE EFFECT OF ANTINEOPLASTIC AND IMMUNOSUP DRUGS, INIT SNOMED Code(s): 730521326570349 (5) Neutropenic typhlitis Narrative/Plan: Pain on examination to the abdomen. Patient is now nothing by mouth. 2nd dose of G-CSF. Current Visit: Yes Status: Acute Priority: High Code(s): K36 - OTHER APPENDICITIS SNOMED Code(s): 6499262
--- NOTE | 2020-02-12 19:08 | CT ---
EXAMINATION TYPE: CT abdomen pelvis wo con DATE OF EXAM: 02/12/2020 COMPARISON: December 11, 2019 HISTORY: abdominal pain, nausea, vomiting. hx of anal ca. CT DLP: 315.8 mGycm Automated exposure control for dose reduction was used. Images were obtained from the diaphragm to the floor the pelvis with no contrast. Lung bases are clear. There is no pleural effusion. Heart size is normal. There is no pericardial eff usion. Liver spleen stomach pancreas gallbladder appear normal. Bile ducts are not dilated. There is no adrenal mass. Kidneys have normal size. There is no hydronephrosis. Ureters are not dilated. There is no retroperit lai adenopathy. There is some perirectal edema. There is rectal wall thickening up to 1.5 cm. This is seen more on the posterior aspect. Uterus is anteverted. There is no definite free fluid in the pe lvis. Bladder distends smoothly. Appendix is not seen. There is no sign of thickened appendix. There is a long segment of dilated distal small bowel with wall thickening and adjacent fat stranding and mesenteric edema. This is seen in the right mid abdomen and the bowel is dilated up to 3.5 cm. T he large bowel is not dilated. I do not suspect a mechanical bowel obstruction. Lumbar vertebra have normal alignment. There is no compression fracture. Posterior elements are intac t. Bony pelvis is intact. IMPRESSION: There is wall thickening of the posterior rectum with perirectal edema that is significantly increase d compared to old exam and consistent with tumor. There is a dilated long segment of distal small bowel with wall thickening and edema in the mesenteri c fat that appears new compared to old exam and is consistent with nonspecific inflammatory process. I do not suspect a bowel obstruction.
[2020-02-12] MEDS: PANTOPRAZOLE 40 MG/10 ML VIAL IVP SCH (19:32)
[2020-02-12] MEDS ORDERED: OLANZapine 5 MG TAB PO SCH (21:00)
[2020-02-12] MEDS: ACETAMINOPHEN TAB 325 MG TAB PO PRN (21:10)
[2020-02-13] MEDS: D5-0.9% NACL WITH KCL 20 MEQ/L 1,000 ML IV SCH ×3 (02:03→17:39)
[2020-02-13 06:44] LABS: Anisocytosis Moderate; HCT 29.7 % (34.0-46.0); MCH 29.6 pg (25.0-35.0); MCHC 33.6 g/dL (31.0-37.0); MCV 88.4 fL (80.0-100.0); Macrocytosis Slight; Mean Platelet Volume 9.3; RBC 3.36 m/uL (3.80-5.40); RDW 20.3 % (11.5-15.5); WBC 7.8 k/uL (3.8-10.6)
[2020-02-13] MEDS: PANTOPRAZOLE 40 MG/10 ML VIAL IVP SCH ×2 (07:38→20:23)
[2020-02-13 09:06] LABS: Band Neutrophils % 6 %; Eosinophils # (M) 0.08 k/uL (0-0.7); Lymphocytes # (M) 0.16 k/uL (1.0-4.8); Monocytes # (M) 1.17 k/uL (0-1.0); Neutrophils % (M) 78 %; Nucleated Red Blood Cells 0 /100 WBC (0-0); Total Cells Counted 200
[2020-02-13 09:07] LABS: Polychromasia Present
[2020-02-13 09:10] LABS: Platelet Count 58 k/uL (150-450)
--- NOTE | 2020-02-13 11:38 | P.PN ---
Subjective Progress Note Date: 02/13/20 Rosetta Arredondo is a 59-year-old female with hx anal carcinoma who presented to the ED complaining of nausea, vomiting and weakness. She is currently undergoing neoadjuvant chemoradiation and had to stop this last to do these progressive symptoms. Specifically she complains of nausea, vomiting and abdo kurt pain leading to decrease PO intake and fatigue. She also complains of severe perineal pain. On presentation vitals stable, WBC 1.5 with lymphocyte 0.2, Hgb 11.1, bili 1.9. EKG and Abd XR unremarkable. 02/12/20 maintained on hydrogel dressings, reporting less perineal pain. Continues on IV fluid hydration, nothing by mouth. Reports last nausea at 0200. Complains of diffuse abdominal tenderness. Oncology consult in place, recommendations pending. WBC improving up to 3.6, hemoglobin decreased to 9.5, platelets 58. Afebrile. 02/13/20 NPO,persistent nausea vomiting reports last episode 4 hours ago. Maintained on IV fluid hydration, PPI, Zofran. Discussed adding Reglan to anti-medical regimen, patient wishes to hold off. Reports abdominal pain and bloating decreasing. Received zarixio, with significant clinical improvement, WBC up to 7.8. Hemoglobin 10, platelets 58. T-max 99.2. Objective - Vital Signs Vital signs: Vital Signs Temp 98.6 F 02/13/20 11:29 Pulse 82 02/13/20 11:29 Resp 16 02/13/20 11:29 BP 100/64 02/13/20 11:29 Pulse Ox 99 02/13/20 11:29 Intake & Output 02/12/20 02/13/20 02/13/20 18:59 06:59 18:59 Intake Total 1500 0 Output Total 200 350 Balance -200 1150 0 Intake: Intake, IV Titration 1500 Amount D5-0.9% NaCl with KCl 20 1500 Meq/l 1,000 ml @ 125 mls/ hr IV .Q8H [facility] Rx#: [id number] Oral 0 Output: Emesis 200 350 Other: Voiding Method Toilet Toilet # Voids 2 2 1 # Bowel Movements 2 1 - Exam General: well nourished, well developed, NAD. Eyes: PERRL, EOMI, conjunctiva normal HENT: normocephalic, oral mucus membranes moist Neck: supple, no JVD Lungs: normal respiratory effort, no wheezes or rales CV: Regular rate and rhythm, no murmur. Peripheral pulses 2+ Abdomen: soft, nondistended, no organomegaly, positive bowel sounds Skin: warm and dry. Neuro: A&Ox3, normal mood and affect - Labs CBC & Chem 7: 02/13/20 06:08 02/10/20 18:34 Labs: Abnormal Lab Results - Last 24 Hours (Table) 02/13/20 Range/Units 06:08 RBC 3.36 L (3.80-5.40) m/uL Hgb 10.0 L (11.4-16.0) gm/dL Hct 29.7 L (34.0-46.0) % RDW 20.3 H (11.5-15.5) % Plt Count 58 L (150-450) k/uL Lymphocytes # (Manual) 0.16 L (1.0-4.8) k/uL Monocytes # (Manual) 1.17 H (0-1.0) k/uL Assessment and Plan Assessment: (1) Chemotherapy induced nausea and vomiting Current Visit: Yes Status: Acute Code(s): R11.2 - NAUSEA WITH VOMITING, UNSPECIFIED; T45.1X5A - ADVERSE EFFECT OF ANTINEOPLASTIC AND IMMUNOSUP DRUGS, INIT SNOMED Code(s): 70494828 (2) Cancer of anal canal Current Visit: Yes Status: Acute Priority: High Code(s): C21.1 - MALIGNANT NEOPLASM OF ANAL CANAL SNOMED Code(s): 463142418 (3) Pancytopenia due to antineoplastic chemotherapy Current Visit: Yes Status: Acute Priority: High Code(s): D61.810 - ANTINEOPLASTIC CHEMOTHERAPY INDUCED PANCYTOPENIA; T45.1X5A - ADVERSE EFFECT OF ANTINEOPLASTIC AND IMMUNOSUP DRUGS, INIT SNOMED Code(s): 730273692462122 (4) Vomiting Current Visit: Yes Status: Acute Priority: High Code(s): R11.10 - VOMITING, UNSPECIFIED SNOMED Code(s): 483378593 Plan: Continue on current medication regime ,monitoring and symptomatic treatment. Maintain IV fluid hydration, anti-emetics, hydrogel dressing. Maintain supportive care .further recommendations as per oncology and radiation oncology. Diet advancement as per oncology. The impression and plan of care has been dictated as directed. : I performed a history and examination of this patient, discussed the same with the dictator. I agree with the dictator's note ,documented as a scribe. Any additional findings or plans will be noted.
--- NOTE | 2020-02-13 11:47 | P.PN ---
Subjective Progress Note Date: 02/13/20 Principal diagnosis: nausea, vomiting secondary to chemotherapy, local treatment toxicities IN f/u pt reports several BMs, less abd pain, feeling much better. No fevers, vomiting, [place], she did get a good night sleep Objective - Vital Signs Vital signs: Vital Signs Temp 98.6 F 02/13/20 11:29 Pulse 82 02/13/20 11:29 Resp 16 02/13/20 11:29 BP 100/64 02/13/20 11:29 Pulse Ox 99 02/13/20 11:29 Intake & Output 02/12/20 02/13/20 02/13/20 18:59 06:59 18:59 Intake Total 1500 0 Output Total 200 350 Balance -200 1150 0 Intake: Intake, IV Titration 1500 Amount D5-0.9% NaCl with KCl 20 1500 Meq/l 1,000 ml @ 125 mls/ hr IV .Q8H [facility] Rx#: [id number] Oral 0 Output: Emesis 200 350 Other: Voiding Method Toilet Toilet # Voids 2 2 1 # Bowel Movements 2 1 - Constitutional General appearance: Present: average body habitus, cooperative, no acute distress - EENT Eyes: Present: anicteric sclerae, EOMI ENT: Present: hearing grossly normal, normal oropharynx - Respiratory Respiratory: bilateral: CTA - Cardiovascular Rhythm: regular Heart sounds: normal: S1, S2 Abnormal Heart Sounds: Absent: systolic murmur, diastolic murmur, rub, S3 Gallop, S4 Gallop, click, other - Peripheral edema leg Peripheral Edema: bilateral: None - Gastrointestinal General gastrointestinal: Present: soft, tenderness - Integumentary Integumentary: Present: normal turgor - Neurologic Neurologic: Present: CNII-XII intact - Musculoskeletal Musculoskeletal: Present: generalized weakness, strength equal bilaterally - Psychiatric Psychiatric: Present: A&O x's 3, appropriate affect, intact judgment & insight - Labs CBC & Chem 7: 02/13/20 06:08 02/10/20 18:34 Labs: Abnormal Lab Results - Last 24 Hours (Table) 02/13/20 Range/Units 06:08 RBC 3.36 L (3.80-5.40) m/uL Hgb 10.0 L (11.4-16.0) gm/dL Hct 29.7 L (34.0-46.0) % RDW 20.3 H (11.5-15.5) % Plt Count 58 L (150-450) k/uL Lymphocytes # (Manual) 0.16 L (1.0-4.8) k/uL Monocytes # (Manual) 1.17 H (0-1.0) k/uL - Imaging and Cardiology CT scan - abdomen: report reviewed CT scan - pelvis: report reviewed Assessment and Plan (1) Cancer of anal canal Narrative/Plan: Patient was just 5 days (yesterdays dictation was incorrect) shy of completing the entire 45-day cycle of neoadjuvant treatment. No treatment planned at this time due to severe SE. Current Visit: Yes Status: Acute Priority: High Code(s): C21.1 - MALIGNANT NEOPLASM OF ANAL CANAL SNOMED Code(s): 392712076 (2) Dehydration Current Visit: Yes Status: Resolved Priority: High Code(s): E86.0 - DEHYDRATION SNOMED Code(s): 82829131 (3) Vomiting Current Visit: Yes Status: Resolved Priority: High Code(s): R11.10 - VOMITING, UNSPECIFIED SNOMED Code(s): 980445279 (4) Pancytopenia due to antineoplastic chemotherapy Narrative/Plan: Progressive anemia, hemoglobin 9.5, CT AP due to pain and drop in Hgb. CT AP sh owed inflammation, no evidence of bleeding, Hgb is 10 today. Platelets 58,000. No need for intervention. Ok for DVT prophylaxis-order SCDs . G-CSF 1 dose given, WBC 3.6, ANC 2.9. 1 more dose yesterday, WBC/ANC WNL today CBC daily. Current Visit: Yes Status: Acute Priority: High Code(s): D61.810 - ANTINEOPLASTIC CHEMOTHERAPY INDUCED PANCYTOPENIA; T45.1X5A - ADVERSE EFFECT OF ANTINEOPLASTIC AND IMMUNOSUP DRUGS, INIT SNOMED Code(s): 040852190351920 (5) Neutropenic typhlitis Narrative/Plan: Pain less on examination today. CT AP reviewed. Clear liquids ordered for lunch. If pt has any pain in the abdomen she is to resume NPO immediately. Current Visit: Yes Status: Acute Priority: High Code(s): K36 - OTHER APPENDICITIS SNOMED Code(s): 5528605 Plan: Doctor attests: I performed a history and physical examination of this patient, developed impression and plan of care. Discussed with dictator. I agree with dictators note, documented as a scribe.
[2020-02-13] MEDS: ACETAMINOPHEN TAB 325 MG TAB PO PRN (12:30)
[2020-02-13] MEDS: SALT AND SODA MOUTHWASH 1,000 ML PO SCH (21:04)
[2020-02-14 07:16] LABS: Anisocytosis Moderate; HCT 32.3 % (34.0-46.0); HGB 10.7 gm/dL (11.4-16.0); MCH 29.6 pg (25.0-35.0); MCHC 33.3 g/dL (31.0-37.0); MCV 88.7 fL (80.0-100.0); Macrocytosis Slight; Mean Platelet Volume 9.4; RBC 3.63 m/uL (3.80-5.40)
[2020-02-14 07:17] LABS: Platelet Count 65 k/uL (150-450)
[2020-02-14] MEDS: PANTOPRAZOLE 40 MG/10 ML VIAL IVP SCH ×2 (09:08→21:01)
[2020-02-14] MEDS: SALT AND SODA MOUTHWASH 1,000 ML PO SCH ×4 (09:09→21:01)
[2020-02-14 10:41] LABS: Band Neutrophils % 3 %; Eosinophils # (M) 0.09 k/uL (0-0.7); Lymphocytes # (M) 0.43 k/uL (1.0-4.8); Monocytes # (M) 0.69 k/uL (0-1.0); Myelocytes # (M) 0.17 k/uL (0); Myelocytes % 2 %; Neutrophils % (M) 82 %; Nucleated Red Blood Cells 1 /100 WBC (0-0); Total Cells Counted 200; WBC 8.6 k/uL (3.8-10.6)
[2020-02-14 10:42] LABS: Polychromasia Present; Toxic Granulation Present
[2020-02-14 10:43] LABS: Poikilocytosis (M) Present
--- NOTE | 2020-02-14 12:33 | P.PN ---
Subjective Progress Note Date: 02/14/20 Principal diagnosis: nausea, vomiting secondary to chemotherapy, local treatment toxicities Pt had some diarrhea, no more nausea or vomiting with discontinuation of IVF, she continues to improved, abd is drier take off tender in the LLQ when examined. Objective - Vital Signs Vital signs: Vital Signs Temp 98.4 F 02/14/20 12:11 Pulse 84 02/14/20 12:11 Resp 17 02/14/20 12:11 BP 102/63 02/14/20 12:11 Pulse Ox 99 02/14/20 12:11 Intake & Output 02/13/20 02/14/20 02/14/20 18:59 06:59 18:59 Intake Total 360 875 Output Total 20 Balance 360 855 Weight 65.771 kg Intake: Intake, IV Titration 500 Amount D5-0.9% NaCl with KCl 20 500 Meq/l 1,000 ml @ 125 mls/ hr IV .Q8H VIRIDIANA Rx#: [id number] Oral 360 375 Output: Emesis 20 Other: Voiding Method Toilet Toilet # Voids 3 2 # Bowel Movements 1 - Constitutional General appearance: Present: average body habitus, cooperative, no acute distress - EENT Eyes: Present: anicteric sclerae, EOMI ENT: Present: hearing grossly normal, normal oropharynx - Respiratory Respiratory: bilateral: CTA - Cardiovascular Heart sounds: normal: S1, S2 - Peripheral edema leg Peripheral Edema: bilateral: None - Gastrointestinal General gastrointestinal: Present: normal bowel sounds, soft, tenderness - Neurologic Neurologic: Present: CNII-XII intact - Musculoskeletal Musculoskeletal: Present: strength equal bilaterally - Psychiatric Psychiatric: Present: A&O x's 3, appropriate affect, intact judgment & insight - Labs CBC & Chem 7: 02/14/20 06:50 02/10/20 18:34 Labs: Abnormal Lab Results - Last 24 Hours (Table) 02/14/20 Range/Units 06:50 RBC 3.63 L (3.80-5.40) m/uL Hgb 10.7 L (11.4-16.0) gm/dL Hct 32.3 L (34.0-46.0) % RDW 21.0 H (11.5-15.5) % Plt Count 65 L (150-450) k/uL Lymphocytes # (Manual) 0.43 L (1.0-4.8) k/uL Myelocytes # (Manual) 0.17 H (0) k/uL Nucleated RBCs 1 H (0-0) /100 WBC Assessment and Plan (1) Cancer of anal canal Narrative/Plan: Patient was just 5 days (initial dictation was incorrect) shy of completing the entire 45-day cycle of neoadjuvant treatment. No treatment planned at this time due to severe SE. D/W Dr. Adhikari, maybe considering next M-F to complete but, pending pt recovery. Current Visit: Yes Status: Acute Priority: High Code(s): C21.1 - MALIGNANT NEOPLASM OF ANAL CANAL SNOMED Code(s): 782675414 (2) Dehydration Current Visit: Yes Status: Resolved Priority: High Code(s): E86.0 - DEHY DRATION SNOMED Code(s): 88401519 (3) Vomiting Current Visit: Yes Status: Resolved Priority: High Code(s): R11.10 - VOMITING, UNSPECIFIED SNOMED Code(s): 414035686 (4) Pancytopenia due to antineoplastic chemotherapy Narrative/Plan: WBC is WNL s/p 2 doses of GCSF. Hgb/plt are stable, no further decrease, no need for transfusions Current Visit: Yes Status: Acute Priority: High Code(s): D61.810 - ANTINEOPLASTIC CHEMOTHERAPY INDUCED PANCYTOPENIA; T45.1X5A - ADVERSE EFFECT OF ANTINEOPLASTIC AND IMMUNOSUP DRUGS, INIT SNOMED Code(s): 811605131792886 (5) Neutropenic typhlitis Narrative/Plan: Pain less on examination today. Have asked that pt stay on clears for now as the LLQ continues to be tender. We reviewed diet advancement, when to continue and when to go back to previous diet and when to go NPO. Pt verbalized understanding. Current Visit: Yes Status: Acute Priority: High Code(s): K36 - OTHER APPENDICITIS SNOMED Code(s): 7083843
[2020-02-14] MEDS ORDERED: SIMETHICONE 80 MG CHEWABLE PO PRN (18:03)
[2020-02-14 22:35] LABS: Appearance,Urine Clear (Clear); Bilirubin,Urine Negative (Negative); Blood,Urine Negative (Negative); Color,Urine Light Yellow; Glucose,Urine (UA) Negative (Negative); Ketones,Urine Trace (Negative); Leukocyte Esterase,Urine Negative (Negative); Nitrite,Urine Negative (Negative); Protein,Urine Negative (Negative); Specific Gravity,Urine 1.005 (1.001-1.035); Urobilinogen,Urine <2.0 mg/dL (<2.0)
[2020-02-15] MEDS: PANTOPRAZOLE 40 MG/10 ML VIAL IVP SCH (08:14)
--- NOTE | 2020-02-15 08:33 | P.PN ---
Subjective Progress Note Date: 02/14/20 She is improved today, no further nausea or vomiting and abdominal pain significantly decreased. Still with some diarrhea. She is tolerating full liquid diet. Pt does complain of some pressure with urination she is concerned could be a UTI. Feels hydrogel has helped with rectal pain. Objective - Vital Signs Vital signs: Vital Signs Temp 98.2 F 02/15/20 05:00 Pulse 80 02/15/20 05:00 Resp 18 02/15/20 05:00 BP 118/75 02/15/20 05:00 Pulse Ox 100 02/15/20 05:00 Intake & Output 02/14/20 02/15/20 02/15/20 18:59 06:59 18:59 Intake Total 1200 500 Balance 1200 500 Weight 65.771 kg Intake: Oral 1200 500 Other: Voiding Method Toilet Toilet # Voids 3 1 - Exam Gen: well developed well nourished white female in NAD CV: RRR, no murmur Lungs: normal effort, clear throughout Abd: soft, generalized tenderness to palpation, improved Skin: warm and dry - Labs CBC & Chem 7: 02/14/20 06:50 02/10/20 18:34 Labs: Abnormal Lab Results - Last 24 Hours (Table) 02/14/20 02/14/20 Range/Units 06:50 22:15 Lymphocytes # (Manual) 0.43 L (1.0-4.8) k/uL Myelocytes # (Manual) 0.17 H (0) k/uL Nucleated RBCs 1 H (0-0) /100 WBC Urine Ketones Trace H (Negative) Assessment and Plan (1) Chemotherapy induced nausea and vomiting Current Visit: Yes Status: Acute Code(s): R11.2 - NAUSEA WITH VOMITING, UNSPECIFIED; T45.1X5A - ADVERSE EFFECT OF ANTINEOPLASTIC AND IMMUNOSUP DRUGS, INIT SNOMED Code(s): 24287545 (2) Cancer of anal canal Current Visit: Yes Status: Acute Priority: High Code(s): C21.1 - MALIGNANT NEOPLASM OF ANAL CANAL SNOMED Code(s): 799521478 (3) Pancytopenia due to antineoplastic chemotherapy Current Visit: Yes Status: Acute Priority: High Code(s): D61.810 - ANTINEOPLASTIC CHEMOTHERAPY INDUCED PANCYTOPENIA; T45.1X5A - ADVERSE EFFECT OF ANTINEOPLASTIC AND IMMUNOSUP DRUGS, INIT SNOMED Code(s): 856155845786439 (4) Vomiting Current Visit: Yes Status: Resolved Priority: High Code(s): R11.10 - VOMITING, UNSPECIFIED SNOMED Code(s): 943595447 Plan: Continue to advance diet, zofran prn, simethicone. Check urine culture. Dis charge planning in progress
[2020-02-15 12:10] VITALS: BP 103/68; PULSE 83; RESP 17; TEMP 97.9
== END 2020-02-15 15:02 | disposition home or self-care (01) | DRG 391 ==
LOC: EC 17:59 → 5NMEDONC 21:38
PROVIDERS: ADMIT Family Medicine; ATTEND Family Medicine
DX: R11.2 Nausea with vomiting, unspecified (principal); D61.810 Antineoplastic chemotherapy induced pancytopenia; C21.1 Malignant neoplasm of anal canal; E86.0 Dehydration; K52.89 Other specified noninfective gastroenteritis and colitis; T45.1X5A Adverse effect of antineoplastic and immunosuppressive drugs, initial encounter; G43.909 Migraine, unspecified, not intractable, without status migrainosus; Z11.59 Encounter for screening for other viral diseases; Z88.2 Allergy status to sulfonamides; Z91.09 Other allergy status, other than to drugs and biological substances; Z90.49 Acquired absence of other specified parts of digestive tract; Z98.890 Other specified postprocedural states; Z80.3 Family history of malignant neoplasm of breast; Z80.8 Family history of malignant neoplasm of other organs or systems; Z79.899 Other long term (current) drug therapy
CPT/HCPCS: 36415; 74018; 74176; 80053; 81003; 83605; 83690; 83735; 85025; 93005; 96361; 96374; 96375; 99285

== ENCOUNTER → 2020-06-27 | Outpatient (CLI) | payer BC ==
--- NOTE | 2020-06-30 18:24 | PE ---
Nuclear medicine PET/CT HISTORY: Anal carcinoma subsequent Patient received 10.8 mCi F-18 FDG intravenously and delayed imaging was performed from the skull bas e to the mid thighs. Localization and attenuation correction CT was performed. Correlation to prior CT 02/12/2020, 12/20/2019. Chest and neck: There is no mediastinal, axillary, or hilar adenopathy. No cervical or supraclavicula r adenopathy, no suspicious uptake. There is no pleural or pericardial effusion. Axial image 114 carmencita ws a nodular density measuring only approximately 4 mm in the right lower lobe similar to prior chest CT December 20, 2019, there is underlying emphysematous change within the lungs. ABDOMEN: Liver shows low attenuation likely due to hepatic steatosis. Focal area of low-attenuation w ithin the right lobe on axial image 150 peripherally measures approximately 1 cm in size and does not show associated uptake. There is no evident adrenal mass or retroperitoneal adenopathy. Perirectal s oft tissue density is again noted, no focal hypermetabolic uptake however. Some minimal fluid suspect ed in the pelvis. No evident inguinal adenopathy. Osseous structures are stable, no suspicious uptake. IMPRESSION: Findings may be due to posttreatment change, no suspicious uptake identified
== END | disposition home or self-care (01) ==
LOC: RADPETMAIN 09:03
PROVIDERS: ATTEND Internal Medicine Hematology & Oncology
DX: C21.0 Malignant neoplasm of anus, unspecified (principal); Z92.21 Personal history of antineoplastic chemotherapy
CPT/HCPCS: 78815; A9552

== ENCOUNTER 2020-07-17 10:27 | Day surgery (SDC) | payer BC ==
[2020-07-10 11:01] VITALS: BMI 22.4
[~2020-07-17 10:27] MED LIST changes: +LACTATED RINGERS 1,000 ML IV SCH; -LIDOCAINE 1% INJ 10MG/ML (20 ML MDV) SQ ONE
[2020-07-17 10:42] VITALS: TEMP 97.8
[2020-07-17] MEDS ORDERED: LACTATED RINGERS 1,000 ML IV ONE (10:42)
[2020-07-17] MEDS ORDERED: LIDOCAINE 1% (10MG/ML) FOR IV START INTRADERMA ONE (11:00)
[2020-07-17] MEDS ORDERED: PROPOFOL 10 MG/ML 20 ML VIAL IV ONE (11:34)
--- NOTE | 2020-07-17 11:51 | P.PCN ---
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 She is status post radiation and chemotherapy and is scheduled for follow-up sigmoidoscopy today.\ PROCEDURE PERFORMED: Flexible sigmoidoscopy with biopsy. PREOPERATIVE DIAGNOSIS: Follow-up anorectal squamous cell carcinoma diagnosed in September 2019 status post chemoradiation therapy. IV sedation per Anesthesia. PROCEDURE: After informed consent was obtained, the patient, was brought into the endoscopy unit. IV sedation was administered by Anesthesia under continuous monitoring. Digital rectal examination was normal. Initially the Olympus CF-160 flexible video colonoscope was then inserted in the rectum, gradually advanced into the splenic flexure. Mucosa of the descending colon, sigmoid colon appeared normal. In the rectum at 10 cm from the anal verge there was a 1 cm nodule that was slightly raised and friable and multiple biopsies were done from this area. There was mild radiation changes noted in the distal rectum consistent with radiation proctitis.Retroflexion was performed in the rectum and no lesions were seen. The patient tolerated the procedure well. IMPRESSION: 1 cm slightly raised nodule in the mid rectum with friable mucosa status post multiple biopsies Mild radiation proctitis RECOMMENDATIONS: Findings of this examination were discussed with the patient as well as her family. She was advised to follow with the biopsy results. She will follow with Dr. Aguayo as scheduled..
[2020-07-17 11:55] VITALS: RESP 16
[2020-07-17 12:11] VITALS: BP 125/73; PULSE 78
== END 2020-07-17 12:30 | disposition home or self-care (01) ==
LOC: ORWHC2ENDO 10:27
PROVIDERS: ATTEND Internal Medicine Gastroenterology
DX: C20 Malignant neoplasm of rectum (principal); K62.7 Radiation proctitis; Z92.21 Personal history of antineoplastic chemotherapy; Z92.3 Personal history of irradiation; Z90.89 Acquired absence of other organs; Z79.1 Long term (current) use of non-steroidal anti-inflammatories (NSAID); Z88.2 Allergy status to sulfonamides
CPT/HCPCS: 88305; 45331; J2704

== ENCOUNTER → 2020-09-26 | Outpatient (CLI) | payer BC ==
--- NOTE | 2020-09-30 06:36 | PE ---
EXAMINATION TYPE: PET CT fusion skull to thigh DATE OF EXAM: 09/26/2020 COMPARISON: PET/CT June 27, 2020 and older studies. HISTORY: Anal cancer diagnosed on biopsy December 12, 2019 treated with chemotherapy and radiation treatme nt, subsequent recurrence on biopsy July 2020 TECHNIQUE: Following the intravenous administration of 9.37 mCi of F-18 FDG, whole body images are p erformed from the skull base to the midthigh. Images are reviewed on the computer in the coronal, ax ial, and sagittal planes. Reconstructed rotating images are created on independent workstation and r eviewed on the computer. A localization and attenuation correction CT is performed in conjunction w ith the PET scan. Blood glucose level equals 85. SCAN: Subsequent Scan FINDINGS: SKULL BASE AND NECK: No new areas of abnormal hypermetabolic uptake. CHEST, MEDIASTINUM, AND HILAR REGION: No new areas of abnormal hypermetabolic uptake. ABDOMEN AND PELVIS: Abnormal soft tissue in the presacral space is redemonstrated and a metabolic. Th ere is new hypermetabolic roughly 1.5 cm focus axial image 207 right posterior aspect of the rectal m ucosa, max SUV 5.19. Normal excretion is seen extending into bladder. No definitive additional areas of abnormal hypermeta bolic uptake. OSSEOUS STRUCTURES: No areas of abnormal hypermetabolic uptake. OTHER CT: Mild underlying emphysematous change redemonstrated. Stable 3 to 4 mm lateral right lower l obe nodule axial image 90. The liver remains diffusely low dense consistent with diffuse fatty infiltration. Anteverted uterus redemonstrated. Mild/moderate concentric bladder wall thickening redemonstrated. IMPRESSION: Focus of increased hypermetabolic uptake in the rectum consistent with history of local n eoplastic recurrence. No new active metastatic disease.
== END | disposition home or self-care (01) ==
LOC: RADPETMAIN 11:16
PROVIDERS: ATTEND Internal Medicine Hematology & Oncology
DX: C21.0 Malignant neoplasm of anus, unspecified (principal)
CPT/HCPCS: 78815; A9552

== ENCOUNTER 2020-10-17 11:25 | Day surgery (SDC) | payer BC ==
[2020-10-15 12:43] VITALS: BMI 23.4
[2020-10-17 12:01] VITALS: RESP 16; TEMP 97.5
[2020-10-17] MEDS ORDERED: LIDOCAINE 1% (10MG/ML) FOR IV START INTRADERMA ONE (12:01)
[2020-10-17] MEDS ORDERED: PROPOFOL 10 MG/ML 20 ML VIAL IV ONE (12:13)
--- NOTE | 2020-10-17 12:25 | P.PCN ---
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 She status post duration and chemotherapy in March 2020. She had a sigmoidoscopy in July of this year that showed a 1 cm nodule in the distal rectum biopsy of which showed moderately differentiated squamous cell carcinoma. She is scheduled for repeat endoscopy today. PROCEDURE PERFORMED: Flexible sigmoidmoidoscopy with biopsy. PREOPERATIVE DIAGNOSIS: Follow-up squamous cell anorectal cancer diagnosed September 2019. IV sedation per Anesthesia. PROCEDURE: After informed consent was obtained, the patient, was brought into the endoscopy unit. IV sedation was administered by Anesthesia under continuous monitoring. Digital rectal examination was normal. Initially the Olympus CF-160 flexible video colonoscope was then inserted in the rectum, gradually advanced into the splenic flexure without any difficulty. Careful examination was performed as the scope was gradually being withdrawn. Prep was excellent. Mucosa of the, descending colon, sigmoid colon, appeared normal. In the mid rectum at 10 cm from the anal was there was a 3 cm ulcerated mass identified and multiple biopsies were done from this area. Retroflexion was performed in the rectum and radiation proctitis was were seen. The patient tolerated the procedure well. IMPRESSION: 3 cm ulcerated mass in the mid rectal at 10 cm from the anal verge status post multiple biopsies Mild radiation proctitis RECOMMENDATIONS: Findings of this examination were discussed with the patient as well as a family. She was advised to follow with the biopsy results and follow with Dr. Aguayo in one to 2 weeks.
[2020-10-17 12:39] VITALS: BP 107/73; PULSE 93
== END 2020-10-17 13:17 | disposition home or self-care (01) ==
LOC: ORWHC2ENDO 11:25
PROVIDERS: ATTEND Internal Medicine Gastroenterology
DX: C21.8 Malignant neoplasm of overlapping sites of rectum, anus and anal canal (principal); K52.9 Noninfective gastroenteritis and colitis, unspecified; G43.909 Migraine, unspecified, not intractable, without status migrainosus; Z79.891 Long term (current) use of opiate analgesic; Z88.2 Allergy status to sulfonamides
CPT/HCPCS: 88305; 45331; J2704

== ENCOUNTER 2020-12-11 21:41 | Emergency (ER) | payer BC ==
[2020-12-11 22:03] VITALS: TEMP 98.8
[2020-12-11] MEDS ORDERED: ONDANSETRON 4 MG/2 ML VIAL IVP STA (22:04)
--- NOTE | 2020-12-11 22:48 | XR ---
EXAMINATION TYPE: XR KUB DATE OF EXAM: 12/11/2020 COMPARISON: February 10, 2020 HISTORY: Abdominal pain TECHNIQUE: 2 views upright FINDINGS: There are skin shayy over the right lower abdomen. There is no sign of intestinal obstruc tion or pneumoperitoneum. There is a relative lack of intestinal gas in the left lower quadrant. IMPRESSION: No bowel obstruction. No free air. Decreased intestinal gas in the left lower quadrant of uncertain significance. Left lower quadrant mass not excluded.
[2020-12-11 23:26] LABS: Basophils % (A) 0 %; Eosinophils # (A) 0.1 k/uL (0-0.7); Eosinophils % (A) 0 %; HCT 36.2 % (34.0-46.0); Lymphocytes # (A) 0.4 k/uL (1.0-4.8); Lymphocytes % (A) 3 %; MCH 29.8 pg (25.0-35.0); MCHC 33.1 g/dL (31.0-37.0); Mean Platelet Volume 7.5; Monocytes # (A) 0.6 k/uL (0-1.0); Monocytes % (A) 4 %; Neutrophils # (A) 14.1 k/uL (1.3-7.7); Neutrophils % (A) 92 %; Platelet Count 301 k/uL (150-450); RBC 4.02 m/uL (3.80-5.40); RDW 13.3 % (11.5-15.5); WBC 15.3 k/uL (3.8-10.6)
[2020-12-11 23:34] LABS: ALT 19 U/L (4-34); AST 18 U/L (14-36); African American GFR (CKD) >90 (>60 ml/min/1.73 sqM); Albumin 3.4 g/dL (3.5-5.0); Alkaline Phosphatase 123 U/L (38-126); Amylase 46 U/L (30-110); Anion Gap 11 mmol/L; Blood Urea Nitrogen 17 mg/dL (7-17); Calcium 9.2 mg/dL (8.4-10.2); Carbon Dioxide 20 mmol/L (22-30); Chloride 101 mmol/L (98-107); Glucose 139 mg/dL (74-99); Lipase 59 U/L (23-300); Non-African American GFR(CKD) >90 (>60 ml/min/1.73 sqM); Potassium 4.5 mmol/L (3.5-5.1); Sodium 132 mmol/L (137-145); Total Bilirubin 1.7 mg/dL (0.2-1.3); Total Protein 6.1 g/dL (6.3-8.2)
[2020-12-12] MEDS ORDERED: SODIUM CHLORIDE 0.9% 1,000 ML IV ONE (00:21)
[2020-12-12] MEDS ORDERED: HYDROmorphone 1 MG/ML 1 ML SYRINGE IVP STA (00:21)
[2020-12-12] MEDS ORDERED: SODIUM CHLORIDE 0.9% 500 ML 500 ML IV STA (00:21)
[2020-12-12 02:16] LABS: Amorphous Sediment,Urine Occasional /hpf; Appearance,Urine Cloudy (Clear); Bacteria,Urine Rare /hpf; Bilirubin,Urine Negative (Negative); Blood,Urine Negative (Negative); Color,Urine Yellow; Glucose,Urine (UA) Negative (Negative); Ketones,Urine 2+ (Negative); Leukocyte Esterase,Urine Small (Negative); Mucus,Urine Many /hpf; Nitrite,Urine Negative (Negative); Protein,Urine 1+ (Negative); RBC,Urine 2 /hpf (0-5); Specific Gravity,Urine 1.026 (1.001-1.035); Squamous Epithelial Cell,Urine 5 /hpf (0-4); Urobilinogen,Urine <2.0 mg/dL (<2.0); WBC,Urine 27 /hpf (0-5)
[2020-12-12] MEDS ORDERED: CALCIUM CARBONATE LIQUID 500 MG/5 ML CUP PO STA (02:42)
[2020-12-12] MEDS ORDERED: HYDROmorphone 0.5 MG/0.5 ML SYRINGE IVP STA ×2 (02:44→05:53)
[2020-12-12 07:27] VITALS: BP 136/79; PULSE 97; RESP 16
--- NOTE | 2020-12-12 07:37 | ED ---
Nausea/Vomiting/Diarrhea HPI - General Chief complaint: Nausea/Vomiting/Diarrhea Stated complaint: Nausea, back pain, abd pain, fever Time Seen by Provider: 12/11/20 21:42 Source: patient, family, EMS Mode of arrival: EMS Limitations: no limitations - History of Present Illness Initial comments: Patient is a 60-year-old woman presenting here with a number of complaints that have come on over the course of the afternoon and tonight. Patient is having some low back pain that she states is aching in character and reminds her of when she had previous urinary tract infection. In addition she has been having nausea and vomiting. She relates that earlier in the day she had follow-up with her surgeon at which time they removed a surgical drain. Patient was not able to keep down any of her home analgesic medicine. Patient's history is notable for having had resection of the rectum and anus are related to rectal cancer. She states that her surgeon is Dr. Garcia Tran. complaint: nausea, vomiting, other Onset/Timin -: days(s) Description of Vomiting: food contents Location: flank Severity: moderate Quality: aching Consistency: constant Improves with: none Worsens with: none Associated Symptoms: nausea/vomiting - Related Data Home Medications Medication Instructions Recorded Confirmed Butalb/Acetaminophen/Caffeine 1 - 2 cap PO Q4HR PRN 07/10/20 12/12/20 [Fioricet 50-300-40 mg Capsule] Cholecalciferol (Vitamin D3) 125 mcg PO DAILY 07/10/20 12/12/20 [Vitamin D3] Acetaminophen [Tylenol 8 Hour] 650 mg PO Q8H PRN 12/12/20 12/12/20 Cyclobenzaprine [Flexeril] 10 mg PO TID PRN 12/12/20 12/12/20 Enoxaparin [Lovenox] 40 mg SQ DAILY 12/12/20 12/12/20 Sennosides/Docusate Sodium [Senna 2 tab PO PC-LUNCH 12/12/20 12/12/20 Plus 8.6-50 mg Tablet] oxyCODONE HCL 5 mg PO Q4H PRN 12/12/20 12/12/20 Allergies Allergy/AdvReac Type Severity Reaction Status Date / Time Sulfa (Sulfonamide Allergy Severe Rash/Hives Verified 12/12/20 08:46 Antibiotics) magnesium AdvReac Nausea & Verified 12/12/20 08:46 Vomiting Review of Systems ROS Statement: Those systems with pertinent positive or pertinent negative responses have been documented in the HPI. ROS Other: All systems not noted in ROS Statement are negative. Constitutional: Denies: fever, chills Respiratory: Denies: cough, dyspnea Cardiovascular: Denies: chest pain, palpitations, edema Gastrointestinal: Reports: as per HPI, nausea, vomiting. Denies: abdominal pain, diarrhea, hematemesis, melena, hematochezia Genitourinary: Denies: dysuria Musculoskeletal: Reports: as per HPI, back pain Skin: Denies: rash Neurological: Denies: headache, weakness, numbness Past Medical History Past Medical History: Cancer Additional Past Medical History / Comment(s): migraines, colitis in her 20s, ANAL CANCER History of Any Multi-Drug Resistant Organisms: None Reported Past Surgical History: Appendectomy, Breast Surgery, Orthopedic Surgery Additional Past Surgical History / Comment(s): sinus surgery, CYSTECTOMY LT BREAST, RT FOOT SX, FLEXIBLE SIGMOID, COLONOSCOPY, Past Anesthesia/Blood Transfusion Reactions: No Reported Reaction Past Psychological History: No Psychological Hx Reported Smoking Status: Never smoker Past Alcohol Use History: None Reported Past Drug Use History: None Reported - Past Family History Sister(s) Family Medical History: Cancer Additional Family Medical History / Comment(s): Breast cancer, mets to brain, 1994; ; another sister has CA General Exam Limitations: no limitations General appearance: alert, in no apparent distress Head exam: Present: atraumatic, normocephalic Eye exam: Present: normal appearance. Absent: scleral icterus, conjunctival injection ENT exam: Present: normal oropharynx Neck exam: Present: normal inspection Respiratory exam: Present: normal lung sounds bilaterally. Absent: respiratory distress, wheezes, rales, rhonchi, stridor Cardiovascular Exam: Present: regular rate, normal rhythm, normal heart sounds. Absent: systolic murmur, diastolic murmur, rubs, gallop GI/Abdominal exam: Present: soft, other. Absent: distended, tenderness, guarding, rebound, rigid, mass Extremities exam: Present: normal inspection, normal capillary refill. Absent: pedal edema, calf tenderness Back exam: Present: normal inspection. Absent: CVA tenderness (R), CVA tenderness (L) Neurological exam: Present: alert Skin exam: Present: warm, dry, normal color, other (The patient's surgical flap does have good appearance however there is any large amount of serous drainage and then at the end of the serous drainage small amount of purulent drainage expressed). Absent: rash Course Vital Signs 12/11/20 12/11/20 12/12/20 21:56 23:02 03:00 Temperature 98.8 F Pulse Rate 118 H 105 H 114 H Respiratory 20 18 18 Rate Blood Pressure 108/43 105/70 105/54 O2 Sat by Pulse 98 97 Oximetry 12/12/20 12/12/20 07:00 07:23 Temperature Pulse Rate 109 H 97 Respiratory 18 16 Rate Blood Pressure 109/70 136/79 O2 Sat by Pulse 97 95 Oximetry Medical Decision Making - Medical Decision Making This patient is a 60-year-old woman here with low back pain and drainage from her surgical incision. There does appear to be small amount of purulent drainage included. The drainage has been cultured. I discussed with the plastic surgery fellow who was on-call for the surgical team. He would like the patient transferred back down to [facility]. Case discussed with the purchasing coordinator there and they state they will call here when a bed is available in the morning. In the meantime case discussed with Dr. Elkins, who covers for Dr. Arrington. In the morning the nurse coordinator from [facility] called and stated that they could not accept the patient first thing this morning they were waiting for discharges. I subsequently spoke with the patient's surgeon who stated that he did not feel waiting was appropriate and requested transfer to the emergency department at [facility]. I discussed case with the emergency physician at [facility] who has accepted transfer. - Lab Data Result diagrams: 12/11/20 21:57 12/11/20 21:57 Lab Results 12/11/20 12/11/20 12/11/20 Range/Units 21:57 21:57 21:57 WBC 15.3 H (3.8-10.6) k/uL RBC 4.02 (3.80-5.40) m/uL Hgb 12.0 (11.4-16.0) gm/dL Hct 36.2 (34.0-46.0) % MCV 90.0 (80.0-100.0) fL MCH 29.8 (25.0-35.0) pg MCHC 33.1 (31.0-37.0) g/dL RDW 13.3 (11.5-15.5) % Plt Count 301 (150-450) k/uL MPV 7.5 Neutrophils % 92 % Lymphocytes % 3 % Monocytes % 4 % Eosinophils % 0 % Basophils % 0 % Neutrophils # 14.1 H (1.3-7.7) k/uL Lymphocytes # 0.4 L (1.0-4.8) k/uL Monocytes # 0.6 (0-1.0) k/uL Eosinophils # 0.1 (0-0.7) k/uL Basophils # 0.0 (0-0.2) k/uL Sodium 132 L (137-145) mmol/L Potassium 4.5 (3.5-5.1) mmol/L Chloride 101 (98-107) mmol/L Carbon Dioxide 20 L (22-30) mmol/L Anion Gap 11 mmol/L BUN 17 (7-17) mg/dL Creatinine 0.65 (0.52-1.04) mg/dL Est GFR (CKD-EPI)AfAm >90 (>60 ml/min/1.73 sqM) Est GFR (CKD-EPI)NonAf >90 (>60 ml/min/1.73 sqM) Glucose 139 H (74-99) mg/dL Plasma Lactic Acid Roberto (0.7-2.0) mmol/L Calcium 9.2 (8.4-10.2) mg/dL Total Bilirubin 1.7 H (0.2-1.3) mg/dL AST 18 (14-36) U/L ALT 19 (4-34) U/L Alkaline Phosphatase 123 (38-126) U/L Troponin I (0.000-0.034) ng/mL Total Protein 6.1 L (6.3-8.2) g/dL Albumin 3.4 L (3.5-5.0) g/dL Amylase 46 (30-110) U/L Lipase 59 (23-300) U/L Urine Color Yellow Urine Appearance Cloudy H (Clear) Urine pH 6.0 (5.0-8.0) Ur Specific [place] 1.026 (1.001-1.035) Urine Protein 1+ H (Negative) Urine Glucose (UA) Negative (Negative) Urine Ketones 2+ H (Negative) Urine Blood Negative (Negative) Urine Nitrite Negative (Negative) Urine Bilirubin Negative (Negative) Urine Urobilinogen <2.0 (<2.0) mg/dL Ur Leukocyte Esterase Small H (Negative) Urine RBC 2 (0-5) /hpf Urine WBC 27 H (0-5) /hpf Ur Squamous Epith Cells 5 H (0-4) /hpf Amorphous Sediment Occasional H (None) /hpf Urine Bacteria Rare H (None) /hpf Urine Mucus Many H (None) /hpf 12/11/20 12/11/20 Range/Units 21:57 21:57 WBC (3.8-10.6) k/uL RBC (3.80-5.40) m/uL Hgb (11.4-16.0) gm/dL Hct (34.0-46.0) % MCV (80.0-100.0) fL MCH (25.0-35.0) pg MCHC (31.0-37.0) g/dL RDW (11.5-15.5) % Plt Count (150-450) k/uL MPV Neutrophils % % Lymphocytes % % Monocytes % % Eosinophils % % Basophils % % Neutrophils # (1.3-7.7) k/uL Lymphocytes # (1.0-4.8) k/uL Monocytes # (0-1.0) k/uL Eosinophils # (0-0.7) k/uL Basophils # (0-0.2) k/uL Sodium (137-145) mmol/L Potassium (3.5-5.1) mmol/L Chloride (98-107) mmol/L Carbon Dioxide (22-30) mmol/L Anion Gap mmol/L BUN (7-17) mg/dL Creatinine (0.52-1.04) mg/dL Est GFR (CKD-EPI)AfAm (>60 ml/min/1.73 sqM) Est GFR (CKD-EPI)NonAf (>60 ml/min/1.73 sqM) Glucose (74-99) mg/dL Plasma Lactic Acid Roberto 1.2 (0.7-2.0) mmol/L Calcium (8.4-10.2) mg/dL Total Bilirubin (0.2-1.3) mg/dL AST (14-36) U/L ALT (4-34) U/L Alkaline Phosphatase (38-126) U/L Troponin I <0.012 (0.000-0.034) ng/mL Total Protein (6.3-8.2) g/dL Albumin (3.5-5.0) g/dL Amylase (30-110) U/L Lipase (23-300) U/L Urine Color Urine Appearance (Clear) Urine pH (5.0-8.0) Ur Specific [place] (1.001-1.035) Urine Protein (Negative) Urine Glucose (UA) (Negative) Urine Ketones (Negative) Urine Blood (Negative) Urine Nitrite (Negative) Urine Bilirubin (Negative) Urine Urobilinogen (<2.0) mg/dL Ur Leukocyte Esterase (Negative) Urine RBC (0-5) /hpf Urine WBC (0-5) /hpf Ur Squamous Epith Cells (0-4) /hpf Amorphous Sediment (None) /hpf Urine Bacteria (None) /hpf Urine Mucus (None) /hpf Critical Care Time Critical Care Time: Yes (40 minutes) Disposition Clinical Impression: Vomiting, Leukocytosis Narrative: Suspected postoperative wound infection Disposition: OTHER INSTITUTION NOT DEFINED Condition: Fair Referrals: Katie Arrington DO [Primary Care Provider] - 1-2 days - Out of Hospital Transfer - Req. Specs Out of Hospital Transfer - Requested Specifics: Other Emergency Center
[2020-12-12] MEDS ORDERED: HYDROmorphone 0.5 MG/0.5 ML SYRINGE IVP PRN (07:41)
[2020-12-12] MEDS ORDERED: ONDANSETRON 4 MG/2 ML VIAL IVP PRN (07:41)
[2020-12-12] MEDS ORDERED: NALOXONE 0.4 MG/ML 1 ML VIAL IV PRN (07:41)
[2020-12-12] MEDS ORDERED: HYDROmorphone 1 MG/ML 1 ML SYRINGE IVP PRN (07:41)
[2020-12-12] MEDS ORDERED: ACETAMINOPHEN TAB 325 MG TAB PO PRN (07:41)
[2020-12-12] MEDS ORDERED: CAFFEINE PO PRN (07:43)
[2020-12-12] MEDS ORDERED: ACETAMINOPHEN PO PRN (07:43)
[2020-12-12] MEDS ORDERED: BUTALB PO PRN (07:43)
[2020-12-12] MEDS ORDERED: [UNRECOGNIZED DRUG - OTHER] PO PRN (07:43)
[2020-12-12] MEDS ORDERED: VANCOMYCIN IV PER PHARMACY 1 EACH MISC MISCELLANE PRN (08:14)
[2020-12-12] MEDS ORDERED: VANCOMYCIN 1,250 MG in SODIUM CHLORIDE 0.9% 250 ML IVPB ONE (08:30)
[2020-12-12] MEDS ORDERED: FAMOTIDINE 20 MG/2 ML VIAL IV STA (08:54)
[2020-12-12] MEDS ORDERED: NON FORMULARY DRUG (Cholecalciferol (Vitamin D3) [Vitamin D3 (5000 Iu)] 125 MCG Capsule) PO SCH (09:00)
[2020-12-12] MEDS ORDERED: PIPERACILLIN-TAZOBACTAM 3.375 GM in SODIUM CHLORIDE 0.9% 100 ML IVPB SCH (16:00)
[2020-12-12] MEDS ORDERED: VANCOMYCIN 1,250 MG in SODIUM CHLORIDE 0.9% 250 ML IVPB SCH (21:00)
== END 2020-12-12 10:29 | disposition other institution (70) ==
LOC: EC 21:41
DX: D72.829 Elevated white blood cell count, unspecified (principal); R11.2 Nausea with vomiting, unspecified; T81.89XA Other complications of procedures, not elsewhere classified, initial encounter; M54.5 Low back pain; R10.9 Unspecified abdominal pain; G43.909 Migraine, unspecified, not intractable, without status migrainosus; Z79.01 Long term (current) use of anticoagulants; Z79.899 Other long term (current) drug therapy; Z88.2 Allergy status to sulfonamides
CPT/HCPCS: 36415; 80053; 82150; 83605; 83690; 84484; 85025; 81001; 87086; 87077; 87186; 74018; 99291; 96365; 96375 ×3; 96376 ×3; J3370; J0696; J1170 ×2

== ENCOUNTER → 2021-03-05 | Outpatient (CLI) | payer BC ==
--- NOTE | 2021-03-05 15:01 | CT ---
EXAMINATION TYPE: CT pelvis wo con DATE OF EXAM: 03/05/2021 COMPARISON: PET/CT 09/26/[address] abdomen pelvis 02/12/2020 HISTORY: follow up anal cancer CT DLP: 266.1 mGycm Examination of the solid and hollow viscera is limited given the lack of contrast. Unenhanced CT of t he pelvis was performed. The lack of contrast limits evaluation. GI contrast was utilized. FINDINGS: The visualized portions of the lower pole of the kidneys as well as the lower aspects of the spleen a nd liver appear grossly unremarkable. Small gallstone is difficult to exclude. BOWEL: Ostomy is identified within the region of the mid abdomen to the left of midline. There is inc reasing soft tissue within the presacral space currently measuring approximately 10 x 6.4 cm versus p rior measurement of 5.9 x 2.2 cm. There is drainage catheter noted within the soft tissue attenuation with several foci of air. There is wall thickening of the urinary bladder could reflect tumor infilt ration. Remaining gastrointestinal tract is of normal caliber. Lymph nodes: No evidence for adenopathy greater than 1 cm. Abdominal aorta: Atheromatous changes seen. No evidence for aneurysm. Other: No significant abnormality. IMPRESSION: 1. Increasing soft tissue presacral space with measurements given above. Drainage catheter noted with in the soft tissue attenuation with several foci of air seen. Associated urinary bladder wall thicken ing. Tumor recurrence is not excluded at this time. Superimposed infection not excluded as well.
== END | disposition home or self-care (01) ==
LOC: RADCTMAIN 13:00
PROVIDERS: ATTEND Surgery Surgical Oncology
DX: C21.0 Malignant neoplasm of anus, unspecified (principal); N32.89 Other specified disorders of bladder
CPT/HCPCS: 72192

== ENCOUNTER → 2021-03-31 | Outpatient (CLI) | payer BC ==
[2021-03-31 19:07] LABS: Basophils % (A) 1 %; Eosinophils # (A) 0.1 k/uL (0-0.7); Eosinophils % (A) 2 %; HCT 37.6 % (34.0-46.0); HGB 11.8 gm/dL (11.4-16.0); Lymphocytes # (A) 1.3 k/uL (1.0-4.8); Lymphocytes % (A) 22 %; MCH 27.6 pg (25.0-35.0); MCHC 31.4 g/dL (31.0-37.0); MCV 87.8 fL (80.0-100.0); Monocytes # (A) 0.3 k/uL (0-1.0); Monocytes % (A) 5 %; Neutrophils # (A) 4.3 k/uL (1.3-7.7); Neutrophils % (A) 69 %; Platelet Count 295 k/uL (150-450); RBC 4.28 m/uL (3.80-5.40); RDW 15.6 % (11.5-15.5); WBC 6.3 k/uL (3.8-10.6)
[2021-03-31 19:15] LABS: African American GFR (CKD) >90 (>60 ml/min/1.73 sqM); Anion Gap 9 mmol/L; Blood Urea Nitrogen 22 mg/dL (7-17); Calcium 10.3 mg/dL (8.4-10.2); Carbon Dioxide 25 mmol/L (22-30); Chloride 104 mmol/L (98-107); Glucose 98 mg/dL (74-99); Non-African American GFR(CKD) >90 (>60 ml/min/1.73 sqM); Phosphorus 4.2 mg/dL (2.5-4.5); Potassium 5.4 mmol/L (3.5-5.1); Sodium 138 mmol/L (137-145)
[2021-03-31 19:46] LABS: INR 0.9 (<1.2); Prothrombin Time 9.8 sec (9.0-12.0)
--- NOTE | 2021-03-31 22:36 | CT ---
EXAMINATION TYPE: CT abdomen pelvis w con DATE OF EXAM: 03/31/2021 COMPARISON: 03/05/2021 and prior. HISTORY: h/o anal CA, sx done in November, pt still has a drain in place CT DLP: 599.3 mGycm Automated exposure control for dose reduction was used. TECHNIQUE: Helical acquisition of images was performed from the lung bases through the pelvis. CONTRAST: Performed with Oral Contrast and with IV Contrast, patient injected with 100 mL of Isovue 300. FINDINGS: LUNG BASES: No significant abnormality is appreciated. LIVER/GB: No acute abnormality is appreciated. Scattered few low attenuating hepatic foci measuring u p to 6 mm. PANCREAS: No significant abnormality is seen. SPLEEN: No significant abnormality is seen. ADRENALS: No significant abnormality is seen. KIDNEYS: Persistent mild bilateral hydronephrosis without obstructing calculi or nephrolithiasis seen . FREE AIR: No free air is visualized. RETROPERITONEAL ADENOPATHY: None visualized PELVIS: There is redemonstration of left-sided pelvic pigtail drain. There is residual moderate joshua cral soft tissue thickening with fat stranding and subtle hypoattenuating area measuring 3.9 x 1.9 cm . There is associated minimal soft tissue gas. No significant contrast extravasation is seen. Redemon strated left colostomy. URINARY BLADDER: Chronic mild urinary bladder wall thickening. ADENOPATHY: None visualized. OSSEOUS STRUCTURES: No significant abnormality is seen. BOWEL: No bowel obstruction. OTHER: None IMPRESSION: PERSISTENT MODERATE PRESACRAL SOFT TISSUE THICKENING WITH INFLAMMATORY CHANGES AND RESIDUAL FLUID COL LECTION MEASURING UP TO 3.9 CM. LEFT PELVIC DRAIN REMAINS IN PLACE. FLUID COLLECTION IS NOTED DEEP TO THE DRAIN TIP. Again tumor recurrence cannot be excluded. Associated trace soft tissue gas. No significant contrast extravasation seen. Persistent mild to moderate bilateral hydronephrosis without obstructing calculi seen. Stable left colostomy. Chronic mild urinary bladder wall thickening. Redemonstrated few low attenuating, hepatic lesions.
== END | disposition home or self-care (01) ==
LOC: RADCTMAIN 15:28
PROVIDERS: ATTEND Surgery Surgical Oncology
DX: N13.30 Unspecified hydronephrosis (principal); N32.89 Other specified disorders of bladder; Z85.048 Personal history of other malignant neoplasm of rectum, rectosigmoid junction, and anus
CPT/HCPCS: 80048; 84100; 85025; 85610; 74177; 36415; Q9967

== ENCOUNTER → 2021-06-25 | Outpatient (CLI) | payer BC ==
--- NOTE | 2021-06-25 12:08 | CT ---
EXAMINATION TYPE: CT ChestAbdPelvis w con DATE OF EXAM: 06/25/2021 COMPARISON: Most recent CT dated March 31, 2021 and older studies. HISTORY: Anal Cancer, Obs for mets CT DLP: 1360 mGycm. Automated Exposure Control for Dose Reduction was Utilized. CONTRAST: CT scan of the thorax, abdomen and pelvis is performed with oral and with IV Contrast, patient inject ed with 100 ml mL of Isovue 300. FINDINGS: LUNGS: Stable 4 mm lateral right lower lobe nodule axial image [address] thorax December 20, 2019. No ne w greater than 5 mm pulmonary nodules or masses. No pleural effusion or pneumothorax seen bilaterally . MEDIASTINUM: There are no no greater than 1 cm noncalcified hilar or mediastinal lymph nodes. No ca rdiomegaly or pericardial effusion is seen. LIVER/GB: Liver remains heterogeneously hypodense suggesting diffuse fatty infiltration. Occasional t iny subcentimeter lesion throughout the liver redemonstrated including stable 1.0 cm lesion right hep atic lobe axial image 62. PANCREAS: No significant abnormality is seen. SPLEEN: No significant abnormality is seen. ADRENALS: No significant abnormality is seen. KIDNEYS: Symmetric cortical medullary uptake and excretion without hydronephrosis seen bilaterally. P oorly distended bladder with mild to moderate concentric wall thickening redemonstrated. BOWEL: Small sized hiatal hernia. Oral contrast does not reach the site of the left lower quadrant os luis. No suspicious small or large bowel dilatation. Evidence of distal colectomy redemonstrated. Persistent abnormal soft tissue and low soft tissue dens ity in the presacral space beginning at image 98 extending inferiorly where there is mild to moderate fat stranding anterior to the bladder. Linear hyperdensity or scar tissue extending towards right gr oin axial image 110 is unchanged from prior. There is persistent central pelvic fat axial image 114 u nchanged from prior. Suspect small residual thin-walled fluid collection right presacral space axial image 111 measuring roughly 3.0 x 1.7 cm not significantly changed from most recent prior. Interval r emoval of the left-sided percutaneous pigtail drainage catheter just superior anterior and to the lef t of this fluid collection with some residual smaller thin-walled fluid collections axial images 104 through 107 remaining present, there is likely some connection to the larger posterior inferior colle ction when scrolling images. No definitive new or enlarging mass is identified suggest neoplastic rec urrence. GENITAL ORGANS: Uterus surgically absent. LYMPH NODES: Stable prominent retroperitoneal lymph nodes for reference 10 x 8 mm left periaortic lym ph node axial image 77 unchanged from last few studies. OSSEOUS STRUCTURES: No significant abnormality is seen. OTHER: There is overlying midline vertical scar redemonstrated. IMPRESSION: Interval removal of left-sided percutaneous pigtail drainage catheter. Fairly stable find ings in the pelvis with the exception of some tiny fluid collections at site of prior catheter tip. Pelvic findings favor combination of posttreatment and postsurgical changes along with postinflammato ry changes after interval surgery for local neoplastic recurrence from prior PET/CT September 26, 2020. N o obvious change or progression to suggest local neoplastic recurrence. No new mass or adenopathy to suggest new metastatic disease.
== END | disposition home or self-care (01) ==
LOC: RADCTMAIN 07:18
PROVIDERS: ATTEND Internal Medicine Hematology & Oncology
DX: Z85.048 Personal history of other malignant neoplasm of rectum, rectosigmoid junction, and anus (principal)
CPT/HCPCS: 71260; 74177; Q9967

== ENCOUNTER → 2022-07-14 | Outpatient (CLI) | payer SELFPAY ==
[2022-07-14 09:01] LABS: INR 0.9 (<1.2); Partial Thromboplastin Time 23.3 sec (22.0-30.0); Prothrombin Time 9.8 sec (9.0-12.0)
[2022-07-14 16:00] LABS: Basophils # (A) 0.03 X 10*3/uL (0.00-0.10); Basophils % (A) 0.5 %; Eosinophils % (A) 1.7 %; HCT 41.7 % (37.2-46.3); HGB 13.5 g/dL (12.0-15.0); Immature Grans, Automated 0.5 %; Lymphocytes # (A) 1.33 X 10*3/uL (0.90-5.00); Lymphocytes % (A) 22.7 %; MCH 30.5 pg (27.0-32.0); MCHC 32.4 g/dL (32.0-37.0); MCV 94.3 fL (80.0-97.0); Mean Platelet Volume 10.3 fL (9.5-12.2); Monocytes # (A) 0.51 X 10*3/uL (0.20-1.00); Monocytes % (A) 8.7 %; NRBC Per 100 WBC 0 /100 WBCS (0.0-0.0); Neutrophils # (A) 3.85 X 10*3/uL (1.80-7.70); Neutrophils % (A) 65.9 %; Platelet Count 196 X 10*3/uL (140-440); RBC 4.42 X 10*6/uL (4.10-5.20); RDW 13.5 % (11.5-14.5); WBC 5.85 X 10*3/uL (4.50-10.00)
== END | disposition home or self-care (01) ==
LOC: LABWHC1 07:03
PROVIDERS: ATTEND Surgery Surgical Oncology
DX: C21.1 Malignant neoplasm of anal canal (principal)
CPT/HCPCS: 36415; 85025; 85610; 85730

== ENCOUNTER → 2022-12-17 | Outpatient (CLI) | payer OTHER ==
--- NOTE | 2022-12-17 16:38 | PE ---
EXAMINATION TYPE: PET CT fusion skull to thigh DATE OF EXAM: 12/17/2022 CLINICAL INDICATION:Female, 62 years old with history of C21.0; TECHNIQUE: Following the intravenous administration of 8.81 mCi of F-18 FDG, whole body images are performed from the skull base to the midthigh. Images are reviewed on the computer in the coronal, a xial, and sagittal planes. Reconstructed rotating images are created on independent workstation and reviewed on the computer. A non-contrast CT is performed in conjunction with the PET scan. Glucose level 107 mg/dL COMPARISON: CT 06/25/2021, PET/CT 09/26/2020, FINDINGS: Mediastinal SUV mean is 1.5. Hepatic parenchyma SUV mean is 1.9. SKULL BASE AND NECK: No suspicious radiotracer activity. CHEST, MEDIASTINUM, AND HILAR REGION: * Subcarinal lymph node max SUV 3.4 measuring 7 mm * AP window lymph node measuring 14 mm in short axis max SUV 2.7. * Right low paratracheal lymph node measuring 9 mm in short axis and max SUV 2.5 ABDOMEN AND PELVIS: Postsurgical changes with soft tissue in the presacral space and in the posterior aspect of the pelvi s. Evaluation is limited without contrast. There is no abnormal FDG activity visualized. OSSEOUS STRUCTURES: No suspicious radiotracer activity. OTHER CT: Emphysema changes throughout the lungs. Right chest wall [id number] with tip terminating in the superior vena cava. Hepatic steatosis. Cholelithiasis. Postsurgical changes anterior wall. Co lostomy changes noted. Postsurgical changes of the pelvis. Stable 3 to 4 mm lateral right lower lobe nodule. IMPRESSION: Few mediastinal lymph nodes with mildly elevated FDG activity which could be reactive versus less lik andrey metastatic disease given these are the only findings in the exam. Short-term follow-up CT recomme nded. Attention follow-up PET/CT.
== END | disposition home or self-care (01) ==
LOC: RADPETMAIN 09:42
PROVIDERS: ATTEND Internal Medicine Hematology & Oncology
DX: C21.0 Malignant neoplasm of anus, unspecified (principal)
CPT/HCPCS: 78815; A9552

== ENCOUNTER → 2022-12-24 | Outpatient (CLI) | payer OTHER ==
--- NOTE | 2022-12-24 12:17 | MR ---
EXAMINATION TYPE: MR brain wo/w con DATE OF EXAM: 12/24/2022 COMPARISON: None HISTORY: Headaches, stage 4 cancer with mets TECHNIQUE: Multiplanar, multisequence images of the brain and brainstem is performed without and with IV contras t, utilizing 7.5 mL intravenous Gadavist . FINDINGS: Diffusion weighted images demonstrate no evidence of a recent infarct or other diffusion ab normality. There is couple focal areas of scattered signal white matter which are too small to mary cterize possibly related to hypertension most likely related to migraine headaches. Microvascular isc hemic differential diagnosis. On T2 there is an area of increased signal along the left not replicate d fusion, postcontrast imaging or FLAIR and therefore felt artifactual. The ventricular system and ci sternal spaces are normal in size and appearance. The brain volume is age appropriate. Midline structures demonstrate normal morphology. The craniocervical junction appears within normal limits. Post contrast images demonstrate no abnormal enhancement. The dural venous sinuses appear pa tent. There are changes of chronic sinusitis and the globes are intact. Mild chronic mastoiditis. IMPRESSION: 1. No evidence of intracranial metastases. 2. Minimal nonspecific white matter changes most over multiple microvascular ischemia or hypertension .
== END | disposition home or self-care (01) ==
LOC: RADMRIMAIN 08:19
PROVIDERS: ATTEND Internal Medicine Hematology & Oncology
DX: C79.31 Secondary malignant neoplasm of brain (principal); C21.0 Malignant neoplasm of anus, unspecified; I67.82 Cerebral ischemia; R90.82 White matter disease, unspecified
CPT/HCPCS: 70553; J1642; A9585

== ENCOUNTER → 2023-02-25 | Outpatient (CLI) | payer OTHER ==
--- NOTE | 2023-02-27 22:14 | PE ---
EXAMINATION TYPE: PET CT fusion skull to thigh DATE OF EXAM: 02/25/2023 COMPARISON: CT chest abdomen pelvis 06/25/2021 Prior PET/CT: 12/17/2022 HISTORY: Anal cancer TECHNIQUE: Following the intravenous administration of 9.5 mCi of F-18 FDG, whole body images are pe rformed from the skull base to the midthigh. Images are reviewed on the computer in the coronal, axi al, and sagittal planes. Reconstructed rotating images are created on independent workstation and re viewed on the computer. A localization and attenuation correction CT is performed in conjunction wi th the PET scan. DLP: 434.14 mGycm SCAN: Subsequent Blood glucose: 20 mg/dL Average Mediastinum SUV: 1.68 Average Liver SUV: 2.02 FINDINGS: NECK: There appears to be some mild uptake within the pretracheal space at the level of the inferior hypopharynx, image 44, SUV value of 3.62. Consider direct visualization. No suspicious uptake within the neck is otherwise evident. THORAX: There is some mild uptake within the nodular density adjacent to the posterior aortic arch. I mage 82, SUV value 2.19. Metastasis is not excluded. There is a focus of radiotracer accumulation in the mid mediastinum with an SUV of 2.05, image 89. ABDOMEN: No abnormal uptake PELVIS: No abnormal uptake. No suspicious uptake is within the soft tissues in the presacral space an d perirectal region. OSSEOUS STRUCTURES: No abnormal uptake LOCALIZATION CT: Presacral soft tissue is again evident. No uptake is evident within this region. Periaortic lymph node appears to be present which has some uptake discussed above. Notice made of cho lelithiasis. Ostomy sites are within the anterior pelvis. Some urinary bladder wall thickening may be present. COMPARISON: Previous subcarinal lymph node had an SUV of 3.4, currently 2.05. Previous uptake adjacen t to the posterior aortic arch has an SUV of 2.65, current measurement 2.19. Previous uptake within t he AP window and right paratracheal lymph node do not appear to have uptake. IMPRESSION: 1. Improving mediastinal lymphadenopathy from comparison. Continued monitoring is recommended. 2. No suspicious changes to suggest local recurrence. 2. Nonspecific uptake within the posterior hypopharynx prevertebral space. Consider direct visualizat ion.
== END | disposition home or self-care (01) ==
LOC: RADPETMAIN 13:21
PROVIDERS: ATTEND Internal Medicine Hematology & Oncology
DX: C21.0 Malignant neoplasm of anus, unspecified (principal); R59.0 Localized enlarged lymph nodes
CPT/HCPCS: 78815; A9552

== ENCOUNTER 2023-03-25 19:52 | Emergency (ER) | payer OTHER ==
[2023-03-25 19:58] VITALS: TEMP 98.3
[2023-03-25 21:07] LABS: Appearance,Urine Clear (Clear); Bacteria,Urine Rare /hpf; Bilirubin,Urine Negative (Negative); Blood,Urine Trace (Negative); Color,Urine Colorless; Glucose,Urine (UA) Negative (Negative); Ketones,Urine Negative (Negative); Leukocyte Esterase,Urine Moderate (Negative); Mucus,Urine Rare /hpf; Nitrite,Urine Negative (Negative); Protein,Urine Negative (Negative); RBC,Urine 6 /hpf (0-5); Specific Gravity,Urine 1.005 (1.001-1.035); Squamous Epithelial Cell,Urine <1 /hpf (0-4); Urobilinogen,Urine <2.0 mg/dL (<2.0); WBC,Urine 25 /hpf (0-5)
--- NOTE | 2023-03-25 21:53 | ED ---
Female Urogenital HPI - General Chief complaint: Urogenital Stated complaint: problem with urination Time Seen by Provider: 03/25/23 20:35 Source: patient Mode of arrival: ambulatory Limitations: no limitations - History of Present Illness Initial comments: 62-year-old female history of anal cancer presenting with chief complaint of difficulty urinating that started today. 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 She also noted some hematuria today. She suspects she has a UTI. She admits to some suprapubic pressure and spasming sensation in the urethra. No fevers or chills. No nausea or vomiting. No flank pain. - Related Data Home Medications Medication Instructions Recorded Confirmed Butalb/Acetaminophen/Caffeine 1 - 2 cap PO Q4HR PRN 07/10/20 08/20/22 [Fioricet 50-300-40 mg Capsule] Cholecalciferol (Vitamin D3) 125 mcg PO DAILY 07/10/20 08/20/22 [Vitamin D3] diazePAM [Valium] 2 mg PO DIRECTED PRN 08/18/22 08/20/22 Previous Rx's Medication Instructions Recorded Cephalexin [Keflex] 500 mg PO Q12HR 7 Days #14 cap 03/25/23 Allergies Allergy/AdvReac Type Severity Reaction Status Date / Time Sulfa (Sulfonamide Allergy Severe Rash/Hives Verified 03/25/23 19:58 Antibiotics) magnesium AdvReac Nausea & Verified 03/25/23 19:58 Vomiting Review of Systems ROS Statement: Those systems with pertinent positive or pertinent negative responses have been documented in the HPI. ROS Other: All systems not noted in ROS Statement are negative. Past Medical History Past Medical History: Cancer Additional Past Medical History / Comment(s): migraines, colitis in her 20s, ANAL CANCER squamos cell carcinoma, chemo ineffective. colostomy. recent PET scan that showed spots. History of Any Multi-Drug Resistant Organisms: None Reported Past Surgical History: Appendectomy, Breast Surgery, Hysterectomy, Orthopedic Surgery Additional Past Surgical History / Comment(s): sinus surgery, CYSTECTOMY LT BREAST, RT FOOT SX, FLEXIBLE SIGMOID, COLONOSCOPY, 2020 colostomy removal of anus and lower colon. APR reconstructions hysterectomy. 2 emergency surgeries for drainage issues. 2021 biopsy of lymph nodes around kidneys. after PET scan still has cancer. Past Anesthesia/Blood Transfusion Reactions: No Reported Reaction Additional Past Anesthesia/Blood Transfusion Reaction / Comment(s): blood transfusions. 2020 no issues Past Psychological History: Anxiety Smoking Status: Never smoker Past Alcohol Use History: None Reported Past Drug Use History: None Reported - Past Family History Sister(s) Family Medical History: Cancer Additional Family Medical History / Comment(s): Breast cancer, mets to brain, 1994; ; another sister has CA Mother Family Medical History: Cancer Additional Family Medical History / Comment(s): breast cancer . hx of senior underwriter cancer with female in family General Exam Limitations: no limitations General appearance: alert, in no apparent distress Head exam: Present: atraumatic, normocephalic, normal inspection Eye exam: Present: normal appearance, EOMI Neck exam: Present: normal inspection, full ROM Respiratory exam: Absent: respiratory distress GI/Abdominal exam: Present: soft. Absent: distended, tenderness, guarding, rebound, rigid Neurological exam: Present: alert, oriented X3, CN II-XII intact Psychiatric exam: Present: normal affect, normal mood Skin exam: Present: warm, dry, intact, normal color. Absent: rash Course Vital Signs 03/25/23 19:54 Temperature 98.3 F Pulse Rate 90 Respiratory 20 Rate Blood Pressure 125/84 O2 Sat by Pulse 99 Oximetry Medical Decision Making - Medical Decision Making Was pt. sent in by a medical professional or institution (JAYASHREE Hernández, [employer] INTERFACE DEVELOPER, urgent care, hospital, or fdc...) When possible be specific @ -No Did you speak to anyone other than the patient for history (EMS, parent, family, police, friend...)? What history was obtained from this source @ -No Did you review nursing and triage notes (agree or disagree)? Why? @ -I reviewed and agree with nursing and triage notes Were old charts reviewed (outside hosp., previous admission, EMS record, old EKG, old radiological studies, urgent care reports/EKG's, fdc records)? Report findings @ -No old charts were reviewed Differential Diagnosis (chest pain, altered mental status, abdominal pain women, abdominal pain men, vaginal bleeding, weakness, fever, dyspnea, syncope, headache, dizziness, GI bleed, back pain, seizure, CVA, palpatations, mental health, musculoskeletal)? @ -Differential includes UTI, malignancy related, this is not an all-inclusive list EKG interpreted by me (3pts min.). @ -As above X-rays interpreted by me (1pt min.). @ -None done CT interpreted by me (1pt min.). @ -None done U/S interpreted by me (1pt. min.). @ -None done What testing was considered but not performed or refused? (CT, X-rays, U/S, labs)? Why? @ -None What meds were considered but not given or refused? Why? @ -None Did you discuss the management of the patient with other professionals (professionals i.e. DrLinda, PA, [employer] INTERFACE DEVELOPER, lab, RT, psych nurse, certified social workers in health care, powder loader, teacher, juvenile officer, case management associate)? Give summary @ -No Was smoking cessation discussed for >3mins.? @ -No Was critical care preformed (if so, how long)? @ -No Were there social determinants of health that impacted care today? How? (Homelessness, low income, unemployed, alcoholism, drug addiction, transportation, low edu. Level, literacy, decrease access to med. care, fpc, rehab)? @ -No Was there de-escalation of care discussed even if they declined (Discuss DNR or withdrawal of care, Hospice)? DNR status @ -No What co-morbidities impacted this encounter? (DM, HTN, Smoking, COPD, CAD, Cancer, CVA, ARF, Chemo, Hep., AIDS, mental health diagnosis, sleep apnea, morbid obesity)? @ -None Was patient admitted / discharged? Hospital course, mention meds given and route, prescriptions, significant lab abnormalities, going to OR and other pertinent info. @ -62-year-old female presenting with chief complaint of difficulty urinating and hematuria that started today. Physical examination is conducted. Urine shows moderate leukocytes and trace blood. She'll be treated for UTI with Keflex. She is educated on today's findings and on the treatment plan. Follow- up with PCP. Report back to ER with any new or worsening symptoms. Discussed return parameters and answered all questions. Patient conveyed verbal understanding and agreed to the plan. I discussed this case in detail with my attending Dr. Collier Undiagnosed new problem with uncertain prognosis? @ -No Drug Therapy requiring intensive monitoring for toxicity (Heparin, Nitro, Insulin, Cardizem)? @ -No Were any procedures done? @ -No Diagnosis/symptom? @ -UTI Acute, or Chronic, or Acute on Chronic? @ -Acute Uncomplicated (without systemic symptoms) or Complicated (systemic symptoms)? @ -Uncomplicated Side effects of treatment? @ -No Exacerbation, Progression, or Severe Exacerbation? @ -No Poses a threat to life or bodily function? How? (Chest pain, USA, AL, pneumonia, PE, COPD, DKA, ARF, appy, cholecystitis, CVA, Diverticulitis, Homicidal, Suicidal, threat to staff... and all critical care pts) @ -Low likelihood - Lab Data Lab Results 03/25/23 Range/Units 20:00 Urine Color Colorless Urine Appearance Clear (Clear) Urine pH 5.0 (5.0-8.0) Ur Specific [place] 1.005 (1.001-1.035) Urine Protein Negative (Negative) Urine Glucose (UA) Negative (Negative) Urine Ketones Negative (Negative) Urine Blood Trace H (Negative) Urine Nitrite Negative (Negative) Urine Bilirubin Negative (Negative) Urine Urobilinogen <2.0 (<2.0) mg/dL Ur Leukocyte Esterase Moderate H (Negative) Urine RBC 6 H (0-5) /hpf Urine WBC 25 H (0-5) /hpf Ur Squamous Epith Cells <1 (0-4) /hpf Urine Bacteria Rare H (None) /hpf Urine Mucus Rare H (None) /hpf Disposition Clinical Impression: Urinary tract infection Disposition: HOME SELF-CARE Condition: Good Instructions (If sedation given, give patient instructions): Urinary Tract I nfection in Women (ED) Additional Instructions: Follow-up with PCP. Report back to ER with any new or worsening symptoms. Take medication as prescribed. Prescriptions: Cephalexin [Keflex] 500 mg PO Q12HR 7 Days #14 cap Is patient prescribed a controlled substance at d/c from ED?: No Referrals: Tam Aguayo MD [Primary Care Provider] - 1-2 days Time of Disposition: 21:45
[2023-03-25 22:04] VITALS: BP 127/76; PULSE 73; RESP 18
== END 2023-03-25 22:03 | disposition home or self-care (01) ==
LOC: EC 19:52
DX: N39.0 Urinary tract infection, site not specified (principal); B97.0 Adenovirus as the cause of diseases classified elsewhere; F41.9 Anxiety disorder, unspecified; Z79.899 Other long term (current) drug therapy; Z88.2 Allergy status to sulfonamides; Z88.8 Allergy status to other drugs, medicaments and biological substances
CPT/HCPCS: 81001; 87086; 99283

== ENCOUNTER → 2023-06-23 | Outpatient (CLI) | payer OTHER ==
--- NOTE | 2023-06-24 08:45 | PE ---
EXAMINATION TYPE: PET CT fusion skull to thigh DATE OF EXAM: 06/23/2023 CLINICAL INDICATION:Female, 63 years old with history of C21.0 ANAL CANCER; TECHNIQUE: Following the intravenous administration of 9.29 mCi of F-18 FDG, whole body images are performed from the skull base to the midthigh. Images are reviewed on the computer in the coronal, a xial, and sagittal planes. Reconstructed rotating images are created on independent workstation and reviewed on the computer. A non-contrast CT is performed in conjunction with the PET scan. Glucose level 106 mg/dL CT DLP: 278 mGycm, Automated exposure control for dose reduction was used. COMPARISON: CT None, PET/CT 02/25/2023, 09/26/2020 FINDINGS: Mediastinal SUV mean is 2.4. Hepatic parenchyma SUV mean is 2.61. SKULL BASE AND NECK: No suspicious radiotracer activity. CHEST, MEDIASTINUM, AND HILAR REGION: * Solution of the mediastinal lymph nodes. * Left axillary lymph nodes max SUV 2.9. * No additional abnormal uptake. ABDOMEN AND PELVIS: Postsurgical changes with soft tissue in the presacral space and in the posterior aspect of the pelvi s. Evaluation is limited without contrast. There are some patchy uptake within the surgical bed max S UV 4.1 previously max SUV 2.7 OSSEOUS STRUCTURES: No suspicious radiotracer activity. OTHER CT: Emphysema changes throughout the lungs. Right chest wall [id number] with tip terminating in the superior vena cava. Hepatic steatosis. Cholelithiasis. Postsurgical changes anterior wall. Co lostomy changes noted. Postsurgical changes of the pelvis. Stable 3 to 4 mm lateral right lower lobe nodule. IMPRESSION: 1. Persistent patchy FDG activity within the pelvis within the surgical bed which may be mildly incr eased compared to prior continued surveillance recommended. Recurrence remains in the differential. 2. Decrease in metabolic activity within mediastinal lymph nodes seen on prior. There is mild increa sed FDG activity within the left axillary lymph nodes which are favored be reactive in the left axill a and the lymph nodes on prior within the mediastinum.
== END | disposition home or self-care (01) ==
LOC: RADPETMAIN 08:22
PROVIDERS: ATTEND Internal Medicine Hematology & Oncology
DX: C21.0 Malignant neoplasm of anus, unspecified (principal)
CPT/HCPCS: 78815; A9552

== ENCOUNTER → 2023-11-01 | Outpatient (CLI) | payer OTHER ==
[2023-11-01 11:25] LABS: African American GFR (CKD) >90 (>60 ml/min/1.73 sqM); Blood Urea Nitrogen 18 mg/dL (7-17); Non-African American GFR(CKD) 88 (>60 ml/min/1.73 sqM)
--- NOTE | 2023-11-08 11:28 | CT ---
EXAMINATION TYPE: CT CHEST ABDOMEN PELVIS WITH CONTRAST CT DLP: 760 mGycm, Automated exposure control for dose reduction was used. 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 Technique: CT chest abdomen and pelvis with contrast; Multiple axial images were obtained. Two-dimens ional coronal and sagittal reconstructions were obtained. Contrast used:100 mL of Isovue 300 with IV Contrast, Oral contrast used: with Oral Contrast Findings: CHEST: LUNGS/ PLEURA: A 3 mm nodule is identified in the right lower lobe on series 5, image 33. The lung parenchyma appears otherwise unremarkable. No pleural effusions. AIRWAY: Patent and unremarkable. HEART: Size within normal limits. MEDIASTINUM: No gross evidence of adenopathy. Previously discussed left axillary lymph node and medi astinal lymph nodes are not reidentified. VASCULATURE: No aortic aneurysm. MUSCULOSKELETAL: No acute osseous abnormalities. SOFT TISSUES/LYMPH NODES: Unremarkable. LOWER NECK: No significant findings. ABDOMEN: ABDOMEN LIVER: Unremarkable GALLBLADDER AND BILE DUCTS: Cholelithiasis without evidence of cholecystitis. PANCREAS: Unremarkable. SPLEEN: Unremarkable. ADRENAL GLANDS: Unremarkable. KIDNEYS AND URETERS: No evidence of hydronephrosis or renal calculus. The ureters are unremarkable. PELVIS BLADDER: Unremarkable REPRODUCTIVE: Unremarkable. ABDOMEN & PELVIS STOMACH AND BOWEL: Stomach and duodenum are unremarkable. Left lower quadrant colostomy site is unrem arkable. No evidence of bowel obstruction. Extensive presacral soft tissue thickening/density appears stable compared to 06/23/2023 PERITONEUM: No evidence of pneumoperitoneum or free fluid. VASCULATURE: No evidence of aortic aneurysm. MUSCULOSKELETAL: No acute osseous abnormalities LYMPH NODES: No gross evidence for lymphadenopathy. SOFT TISSUE/ABDOMINAL WALL: Unremarkable IMPRESSION: Extensive presacral soft tissue thickening/density appears stable compared to 06/23/2023. Tiny 3 mm right lower lobe pulmonary nodule identified. The usual surveillance CT exams performed on the patient should suffice is adequate follow-up. Follow up recommendations for incidental pulmonary nodules are per [facility] [employer] or [employer].
== END | disposition home or self-care (01) ==
LOC: RADCTMAIN 10:24
PROVIDERS: ATTEND Internal Medicine Hematology & Oncology
DX: C21.0 Malignant neoplasm of anus, unspecified (principal); R51.9 Headache, unspecified; R91.1 Solitary pulmonary nodule; R11.0 Nausea
CPT/HCPCS: 82565; 84520; 71260; 74177; 36415; Q9967

== ENCOUNTER → 2024-05-01 | Outpatient (CLI) | payer OTHER ==
--- NOTE | 2024-05-01 12:09 | CT ---
EXAMINATION TYPE: CT ChestAbdPelvis w con CT DLP: 1716 mGycm, Automated exposure control for dose reduction was used. DATE OF EXAM: 05/01/2024 11:55 AM COMPARISON: CT chest and pelvis 11/01/2023, 06/25/2021, PET CT 06/23/2023, 02/25/2023, 12/17/2022 CLINICAL INDICATION:Female, 64 years old with history of C21.0 rectal ca; PHH, rectal ca Technique: Multiple axial images of the chest, abdomen, and pelvis were obtained following the intrav enous administration of 100 mL Isovue-300. Oral contrast was administered. Two-dimensional coronal an d sagittal reconstructions were obtained. Findings: CHEST: LUNGS/ PLEURA: No pleural effusion, pneumothorax, focal consolidation. Stable right lower lobe 3 mm pulmonary nodule (series 4, image 34). No new or enlarging pulmonary nodules. AIRWAY: Patent and unremarkable.. HEART: Size within normal limits. No pericardial effusion. MEDIASTINUM: No evidence of adenopathy. VASCULATURE: No aortic aneurysm. Right anterior chest wall IJ Mediport with catheter tip at the supe rior cavoatrial junction. MUSCULOSKELETAL: No acute osseous abnormalities. No aggressive osseous lesion. SOFT TISSUES/LYMPH NODES: Unremarkable. LOWER NECK: No significant findings. ABDOMEN: ABDOMEN LIVER: Noncirrhotic morphology. There are 2 stable hypodense right hepatic lobe lesions with largest measuring up to 1 cm. Most consistent with cirrhosis. GALLBLADDER AND BILE DUCTS: Cholelithiasis. No biliary duct dilatation. PANCREAS: Unremarkable. SPLEEN: Unremarkable. ADRENAL GLANDS: Unremarkable. KIDNEYS AND URETERS: No evidence of hydronephrosis or renal calculus. The kidneys enhance symmetrical ly. PELVIS BLADDER: Incompletely distended but grossly unremarkable. REPRODUCTIVE: The uterus is surgically absent. ABDOMEN & PELVIS STOMACH AND BOWEL: Stomach and duodenum are unremarkable. Postsurgical changes from left lower quadra nt end colostomy. Enteric contrast reaches the transverse colon. Mild colonic stool burden. No eviden ce of bowel obstruction. PERITONEUM: No evidence of pneumoperitoneum or free fluid. VASCULATURE: No evidence of aortic aneurysm. MUSCULOSKELETAL: No acute osseous abnormalities. No aggressive osseous lesion. LYMPH NODES: No evidence for lymphadenopathy. SOFT TISSUE/ABDOMINAL WALL: Redemonstration of increased presacral soft tissue thickening measuring u p to 4.1 cm in thickness (series 3, image 104). Interval removal of surgical drain from this region w ith decreased surrounding inflammatory changes. IMPRESSION: 1. Similar extensive presacral soft tissue thickening related to posttreatment changes with decrease d surrounding inflammatory changes with interval removal of surgical drain. Residual neoplastic disea se is not entirely excluded. 2. No pathologically enlarged lymphadenopathy within the chest, abdomen or pelvis. 3. Stable right lower lobe 3 mm pulmonary nodule. No new or enlarging pulmonary nodules. [facility], , 05/01/2024 12:07 PM
== END | disposition home or self-care (01) ==
LOC: RADPROMAIN 09:45
PROVIDERS: ATTEND Internal Medicine Hematology & Oncology
CPT/HCPCS: 71260; 74177

== ENCOUNTER → 2024-10-15 | Outpatient (CLI) | payer OTHER ==
--- NOTE | 2024-10-15 15:23 | CT ---
EXAMINATION TYPE: CT ChestAbdPelvis w con DATE OF EXAM: 10/15/2024 COMPARISON: Most recent prior CT May 01, 2024 and studies CLINICAL INDICATION: Female, 64 years old with history of C21.0 GASTRO-ESOPHAGEAL REFLUX DIS WITH ESO PHAGITIS, WITHOUT, anal/lymph node ca, TECHNIQUE: CT scan of the thorax, abdomen and pelvis is performed with IV Contrast, patient injected with 100 mL of Isovue 300. CT DLP: 737.7 mGycm. Automated Exposure Control for Dose Reduction was Utilized. FINDINGS: LUNGS: The lungs are grossly clear, there is no concerning new parenchymal mass or nodule identified. Stable 3 to 4 mm right lower lobe pulmonary nodule axial image 40. There is no pleural effusion or pneumothorax seen. The tracheobronchial tree is patent. HEART: Size within normal limits. No significant coronary artery calcifications. MEDIASTINUM: There are no greater than 1 cm hilar or mediastinal lymph nodes. No pericardial effusi on is seen. OTHER: Stable right internal jugular Mediport catheter. LIVER/GB: Liver is heterogeneous consistent with diffuse fatty infiltrative hepatocellular disease. H epatomegaly remains present. A few subcentimeter low dense round lesions throughout the liver too sma ll to further characterize but stable and most likely benign. PANCREAS: No significant abnormality is seen. SPLEEN: No significant abnormality is seen. ADRENALS: No significant abnormality is seen. KIDNEYS: Poorly distended bladder on current study. BOWEL: Persistent left lower quadrant colostomy. No abnormal small or large bowel dilatation. Persist ent heterogeneous presacral partially calcified thickened soft tissue measuring up to 4.[address] axial image 107 redemonstrated. GENITAL ORGANS: Uterus is surgically absent. LYMPH NODES: No greater than 1cm abdominal lymph nodes are appreciated. OSSEOUS STRUCTURES: No significant abnormality is seen. OTHER: Vertically oriented scar in the anterior wall of the mid abdomen is redemonstrated. Horizontal scar tissue over the anterior wall of the pelvis is redemonstrated. IMPRESSION: Stable nonspecific significant presacral soft tissue swelling favors posttreatment change . No obvious new or enlarging mass or adenopathy seen to suggest active neoplastic recurrence. No si gnificant change from most recent prior CT. [facility], Workstation: [employer], 10/15/2024 3:20 PM
== END | disposition home or self-care (01) ==
LOC: RADPROMAIN 10:10
PROVIDERS: ATTEND Internal Medicine Hematology & Oncology
DX: C21.0 Malignant neoplasm of anus, unspecified (principal); R91.1 Solitary pulmonary nodule; G43.909 Migraine, unspecified, not intractable, without status migrainosus; R16.0 Hepatomegaly, not elsewhere classified
CPT/HCPCS: 71260; 74177; J1642; Q9967

== ENCOUNTER 2024-11-12 09:04 | Day surgery (SDC) | payer OTHER ==
[~2024-11-12 09:04] MED LIST changes: +HYDROmorphone 0.5 MG/0.5 ML SYRINGE IVP PRN; -LACTATED RINGERS 1,000 ML IV SCH; +MIDAZOLAM 2 MG/2 ML VIAL IV PRN
[2024-11-12 09:31] VITALS: RESP 16; TEMP 97.1
[2024-11-12] MEDS: LACTATED RINGERS 1,000 ML IV ONE (10:02)
[2024-11-12] MEDS: LACTATED RINGERS 1,000 ML IV SCH (10:02)
[2024-11-12] MEDS: DEXAMETHASONE SOD PHOSPHATE 4 MG/ML 1 ML VIAL IV ONE (10:03)
[2024-11-12] MEDS: ACETAMINOPHEN TAB 500 MG TAB PO PRN (10:04)
[2024-11-12] MEDS: ONDANSETRON 4 MG/2 ML VIAL IVP ONE (10:04)
[2024-11-12] MEDS: HEPARIN SODIUM,PORCINE 5,000 UNIT/ML 1 ML VIAL SQ PRN (10:04)
[2024-11-12] MEDS: SCOPOLAMINE 1 MG/72 HR PATCH TRANSDERM ONE (10:21)
--- NOTE | 2024-11-12 10:38 | P.GSHP ---
History of Present Illness H&P Date: 11/12/24 Chief Complaint: Anal cancer 64-year-old female here for Port-A-Cath removal. Port was placed over 1 year ago. Has been using the port intermittently for IV fluids and blood draws. No issues with the port other than some achiness there. Past Medical History Past Medical History: Cancer Additional Past Medical History / Comment(s): migraines, colitis in her 20s, ANAL CANCER, permanent ostomy History of Any Multi-Drug Resistant Organisms: None Reported Past Surgical History: Appendectomy, Bowel Resection, Breast Surgery, Hysterectomy, Orthopedic Surgery Additional Past Surgical History / Comment(s): sinus surgery, CYSTECTOMY LT BREAST, RT FOOT SX, FLEXIBLE SIGMOID, COLONOSCOPY, Past Anesthesia/Blood Transfusion Reactions: No Reported Reaction Additional Past Anesthesia/Blood Transfusion Reaction / Comment(s): blood transfusions. 2020 no issues Smoking Status: Never smoker - Past Family History Sister(s) Family Medical History: Cancer Additional Family Medical History / Comment(s): Breast cancer, mets to brain, 1994; ; another sister has CA Mother Family Medical History: Cancer Additional Family Medical History / Comment(s): breast cancer . 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 Medications and Allergies Home Medications Medication Instructions Recorded Confirmed Type Butalb/Acetaminophen/Caffeine 1 - 2 cap PO Q4HR PRN 07/10/20 11/12/24 History [Fioricet 50-300-40 mg Capsule] Cholecalciferol (Vitamin D3) 125 mcg PO DAILY 07/10/20 11/12/24 History [Vitamin D3] diazePAM [Valium] 2 mg PO DIRECTED PRN 08/18/22 11/12/24 History Allergies Allergy/AdvReac Type Severity Reaction Status Date / Time Sulfa (Sulfonamide Allergy Severe Rash/Hives Verified 11/12/24 09:32 Antibiotics) magnesium AdvReac Nausea & Verified 11/12/24 09:32 Vomiting Surgical - Exam Vital Signs Temp Pulse Resp BP Pulse Ox 97.1 F L 74 16 140/74 100 11/12/24 09:29 11/12/24 09:29 11/12/24 09:29 11/12/24 09:29 11/12/24 09:29 Physical exam: General: Well-developed, well-nourished HEENT: Normocephalic, sclerae nonicteric Abdomen: Nontender, nondistended Extremities: No edema Neuro: Alert and oriented Chest: Right-sided Port-A-Cath in place Assessment and Plan (1) Cancer of anal canal Narrative/Plan: Will proceed with Port-A-Cath removal at this time. Current Visit: No Status: Acute Priority: High Code(s): C21.1 - MALIGNANT NEOPLASM OF ANAL CANAL SNOMED Code(s): 103284911
[2024-11-12] MEDS ORDERED: fentaNYL (PF) 50 MCG/ML 2 ML AMP ONE (10:42)
[2024-11-12] MEDS ORDERED: PROPOFOL 10 MG/ML 20 ML VIAL IV ONE (10:42)
[2024-11-12] MEDS ORDERED: MIDAZOLAM 2 MG/2 ML VIAL ONE (10:42)
[2024-11-12] MEDS: ceFAZolin 2 GM in DEXTROSE 5% IN WATER 50 ML IVPB PRN (10:45)
[2024-11-12] MEDS: BUPIVACAINE (PF) 0.25% 30 ML VIAL SQ ONE (11:04)
[2024-11-12] MEDS ORDERED: NALOXONE 0.4 MG/ML 1 ML VIAL IV PRN (11:21)
--- NOTE | 2024-11-12 11:35 | P.OP ---
Date of Procedure: 11/12/24 Procedure(s) Performed: PREOPERATIVE DIAGNOSIS: Anal cancer POSTOPERATIVE DIAGNOSIS: Same PROCEDURE: Port-A-Cath removal SURGEON: Edward EBL: Minimal ANESTHESIA: Sedation COMPLICATIONS: None OPERATIVE PROCEDURE: Patient was placed in the supine position. The patient was sedated per anesthesia that time. The chest was prepped and draped in the usual sterile fashion. The skin was localized with Marcaine solution. The previous incision was re-incised using a scalpel. The port was easily excised using a ccommodation of blunt dissection sharp dissection and electrocautery. The subcutaneous tissues were reapproximated using 3-0 Vicryl sutures. The skin was reapproximated using 4-0 Monocryl sutures. Skin glue was then applied. DISPOSITION: Stable to recovery room
[2024-11-12 11:46] VITALS: BP 140/80; PULSE 52
== END 2024-11-12 12:05 | disposition home or self-care (01) ==
LOC: OR 09:04
PROVIDERS: ATTEND Surgery
DX: Z45.2 Encounter for adjustment and management of vascular access device (principal); Z85.048 Personal history of other malignant neoplasm of rectum, rectosigmoid junction, and anus; Z88.2 Allergy status to sulfonamides; Z88.1 Allergy status to other antibiotic agents
CPT/HCPCS: 36590; J2250; J1644; J1100; J0690; J2405; J3010; J2704; J0665